=== PATIENT | male | born 1940 | race Caucasian/White ===

== ENCOUNTER → 2017-09-13 | Outpatient (CLI) | payer OTHER | END | disposition home or self-care (01) | LOC: RAH 09:02 | PROVIDERS: ATTEND Family Medicine | DX: I12.9 Hypertensive chronic kidney disease with stage 1 through stage 4 chronic kidney disease, or unspecified chronic kidney disease (principal); N18.4 Chronic kidney disease, stage 4 (severe); I31.3 Pericardial effusion (noninflammatory) | CPT/HCPCS: 93306 ==

== ENCOUNTER → 2018-08-31 | Outpatient (CLI) | payer OTHER | END | disposition home or self-care (01) | LOC: OIH 11:12 | PROVIDERS: ATTEND Family Medicine | DX: I50.9 Heart failure, unspecified (principal) | CPT/HCPCS: 71046 ==

== ENCOUNTER → 2018-09-26 | Outpatient (CLI) | payer OTHER | END | disposition home or self-care (01) | LOC: RAH 07:14 | PROVIDERS: ATTEND Family Medicine | DX: K76.0 Fatty (change of) liver, not elsewhere classified (principal); R63.4 Abnormal weight loss; E86.0 Dehydration | CPT/HCPCS: 76700 ==

== ENCOUNTER 2019-03-07 06:30 | Day surgery (SDC) | payer OTHER ==
[~2019-03-07] VITALS: Ht 177.8 cm; Wt 105.7 kg
[~2019-03-07 06:30] MED LIST: SODIUM CHLORIDE 0.9% 1000ML 1,000 ML IV ONE
[2019-03-07] MEDS ORDERED: PROPOFOL 10 MG/ML 20ML VIAL IV ONE ×2 (06:51)
[2019-03-07 07:35] VITALS: BP 137/74
[2019-03-07 09:45] VITALS: BP 129/52
[2019-03-07 09:50] VITALS: BP 136/74
[2019-03-07 09:55] VITALS: BP 136/66
[2019-03-07 10:00] VITALS: BP 135/67
== END 2019-03-07 10:15 | disposition home or self-care (01) ==
LOC: ENDO 06:30 → DAH 06:30 → ENDO 10:15
PROVIDERS: ATTEND Internal Medicine
DX: K62.1 Rectal polyp (principal); K63.5 Polyp of colon; K64.0 First degree hemorrhoids; K57.30 Diverticulosis of large intestine without perforation or abscess without bleeding; K22.8 Other specified diseases of esophagus; K44.9 Diaphragmatic hernia without obstruction or gangrene; F03.90 Unspecified dementia, unspecified severity, without behavioral disturbance, psychotic disturbance, mood disturbance, and anxiety; I10 Essential (primary) hypertension; K21.9 Gastro-esophageal reflux disease without esophagitis; E66.9 Obesity, unspecified; E11.9 Type 2 diabetes mellitus without complications; E78.5 Hyperlipidemia, unspecified; Z79.899 Other long term (current) drug therapy; Z79.84 Long term (current) use of oral hypoglycemic drugs; Z79.4 Long term (current) use of insulin; Z82.49 Family history of ischemic heart disease and other diseases of the circulatory system; Z83.3 Family history of diabetes mellitus
CPT/HCPCS: 43239; 45380; 45385; 82948 ×2; A4606; J2704 ×2; J7030

== ENCOUNTER 2020-08-27 10:36 | Inpatient (IN) | payer OTHER ==
[~2020-08-27] VITALS: Ht 177.8 cm; Wt 118.2 kg
[~2020-08-27 10:36] MED LIST changes: +EMPA10TA PO; +FURO20TA4 PO; +INSLAN SQ; +OMEP10CA5 PO; +SIMV40TA59 PO; -SODIUM CHLORIDE 0.9% 1000ML 1,000 ML IV ONE
[2020-08-27] MEDS ORDERED: FUROSEMIDE 40MG VIAL ONE (10:56)
[2020-08-27] MEDS ORDERED: 0.9%NACL 1000ML 1,000 ML IV ONE (10:58)
[2020-08-27] MEDS ORDERED: PROPOFOL 1000 MG/100 ML 100 ML IV ONE ×2 (11:08→21:39)
[2020-08-27 11:15] LABS: BASOPHILS % (AUTO) 0.2 % (0.0-5.0); HEMATOCRIT 38.9 % (42-54); LYMPHOCYTES % (AUTO) 9.2 % (21.0-51.0); MEAN CORPUSCULAR HEMOGLOBIN 22.9 pg (27.0-33.0); MEAN CORPUSCULAR HGB CONC 30.1 g/dL (32.0-36.0); MEAN CORPUSCULAR VOLUME 76.3 fL (79-99); MONOCYTES % (AUTO) 10.6 % (3.0-13.0); NEUTROPHILS % (AUTO) 79.5 % (40.0-77.0); PLATELET COUNT (AUTO) 251 K/uL (130-400); RED CELL DISTRIBUTION WIDTH 18.9 % (11.0-15.5); WHITE BLOOD COUNT (AUTO) 10.7 K/uL (4.8-10.8)
[2020-08-27 11:30] LABS: ABG BASE EXCESS -2.7 mmol/L (-2.0-3.0); ABG HCO3 22.8 mmol/L (21.0-28.0); ABG OXYGEN SATURATION 99.8 % (95.0-99.0); ABG PCO2 42 mmHg (35-48)
[2020-08-27 11:33] LABS: BILIRUBIN,URINE Negative (NEGATIVE); COLOR,URINE Yellow (YELLOW); GLUCOSE, URINE (UA) Negative (NEGATIVE); KETONES,URINE 40 mg/dL (NEGATIVE); LEUKOCYTE ESTERASE ,URINE Negative (NEGATIVE); NITRATE,URINE Negative (NEGATIVE); OCCULT BLOOD,URINE Large (NEGATIVE); PH,URINE 5.5 (5.0-8.0); PROTEIN,URINE POS 2+ mg/dL (NEGATIVE)
[2020-08-27] MEDS ORDERED: ACETAMINOPHEN 650 MG SUPPOSITORY RC ONE (11:33)
[2020-08-27 11:36] LABS: APPEARANCE,URINE SLIGHTLY CLOUDY (CLEAR)
[2020-08-27 11:37] LABS: ALANINE AMINOTRANSFERASE 54 U/L (12-78); ALBUMIN 3.2 g/dL (3.5-5.0); ASPARTATE AMINOTRANSFERASE 150 U/L (10-37); BILIRUBIN,TOTAL 1.1 mg/dL (0.2-1.0); CARBON DIOXIDE 24 mmol/L (21-32); CHLORIDE 100 mmol/L (101-111); GLOMERULAR FILTR. RATE CALC 34 mL/min (>60); GLUCOSE,RANDOM 162 mg/dL (70-105); MYOGLOBIN 892 ng/mL (10-92); POTASSIUM 3.6 mmol/L (3.5-5.1); SODIUM SERUM 134 mmol/L (136-145); TOTAL PROTEIN, SERUM 7.3 g/dL (6.0-8.3); TROPONIN I 0.08 ng/mL (0.00-0.06); UREA NITROGEN, BLOOD 17 mg/dL (7-18)
[2020-08-27 11:42] LABS: AMMONIA < 3 umol/L (11-32)
[2020-08-27 11:43] LABS: CREATINE KINASE, TOTAL 2921 U/L (21-232)
[2020-08-27 11:55] LABS: MUCUS,URINE Many LPF (None Seen); RBC,URINE 51-100 /HPF (0-1); WBC,URINE None Seen /HPF (0-1)
[2020-08-27 11:56] LABS: BACTERIA,URINE Moderate /HPF (None Seen)
[2020-08-27] MEDS ORDERED: ETOMIDATE 20MG VIAL IVP ONE (12:09)
[2020-08-27] MEDS ORDERED: ROCURONIUM BROMIDE 10MG/1ML 5ML VL IV ONE (12:09)
[2020-08-27 12:13] LABS: INR 1.15 (0.85-1.15); PROTHROMBIN TIME 12.4 SEC (9.6-11.6)
[2020-08-27 12:14] LABS: PARTIAL THROMBOPLASTIN TIME 27.1 SEC (26.3-35.5)
[2020-08-27] MEDS ORDERED: AZITHROMYCIN 500MG+NS 250ML 250 ML IV ONE (14:16)
[2020-08-27] MEDS ORDERED: LACTATED RINGERS 1000ML 1,000 ML IV SCH (14:30)
[2020-08-27] MEDS ORDERED: GLUCAGON 1MG KIT 1 MG ML IM PRN (14:30)
[2020-08-27] MEDS ORDERED: DEXTROSE 50%-WATER 50 ML DISP.SYRIN IV PRN (14:30)
[2020-08-27] MEDS ORDERED: ACETAMINOPHEN 650 MG SUPPOSITORY RC PRN (14:30)
[2020-08-27] MEDS ORDERED: ALBUTEROL INHALER 90MCG/INH IH PRN (14:30)
[2020-08-27] MEDS ORDERED: LACTULOSE 20 GM/30 ML UDCUP PO PRN (14:30)
[2020-08-27] MEDS ORDERED: ZOSYN 3.375GM +NS 50ML IV SCH (14:30)
[2020-08-27] MEDS ORDERED: LABETALOL 20MG SYG IV PRN (14:30)
[2020-08-27] MEDS ORDERED: CLONIDINE HCL 0.1 MG TABLET PO PRN (14:30)
[2020-08-27] MEDS ORDERED: ONDANSETRON 4MG INJ IVP PRN (14:30)
[2020-08-27] MEDS ORDERED: NOREPINEPHRIN 4MG/NS 250ML 250 ML IV PRN (14:30)
[2020-08-27] MEDS ORDERED: MORPHINE 2 MG SYG IVP PRN (14:30)
[2020-08-27] MEDS ORDERED: LEVOFLOXACIN 500 MG/D5W 100 ML 100 ML IV ONE (15:00)
[2020-08-27 15:36] LABS: CRP QUANTITATIVE 128.5 mg/L (0.00-9.0)
[2020-08-27] MEDS ORDERED: SOLU-MEDROL 125MG VIAL ONE (15:39)
[2020-08-27] MEDS ORDERED: ZOSYN 3.375GM+NS 50ML 50 ML IV ONE (15:40)
[2020-08-27] MEDS ORDERED: LACTATED RINGERS 1000ML 1,000 ML IV ONE (15:40)
[2020-08-27] MEDS ORDERED: ZOSYN 3.375GM+NS 50ML 50 ML IV SCH (16:00)
[2020-08-27 16:05] LABS: TROPONIN I 0.1 ng/mL (0.00-0.06)
[2020-08-27] MEDS ORDERED: LEVOFLOXACIN 500 MG/D5W 100 ML IV SCH (17:00)
[2020-08-27] MEDS ORDERED: LEVOFLOXACIN 500 MG/D5W 100 ML 100 ML ONE (17:36)
[2020-08-27 18:03] LABS: APPEARANCE,URINE Cloudy (CLEAR); BILIRUBIN,URINE Negative (NEGATIVE); COLOR,URINE Yellow (YELLOW); GLUCOSE, URINE (UA) Negative (NEGATIVE); KETONES,URINE Trace mg/dL (NEGATIVE); LEUKOCYTE ESTERASE ,URINE Moderate (NEGATIVE); NITRATE,URINE Negative (NEGATIVE); OCCULT BLOOD,URINE Moderate (NEGATIVE); PROTEIN,URINE Trace mg/dL (NEGATIVE)
[2020-08-27 18:11] LABS: AMPHET/METH SCREEN,URINE NEGATIVE (NEGATIVE); BARBITURATE SCREEN, URINE NEGATIVE (NEGATIVE); BENZODIAZEPINES SCREEN,URINE NEGATIVE (NEGATIVE); CANNABINOID SCREEN,URINE NEGATIVE (NEGATIVE); COCAINE SCREEN,URINE NEGATIVE (NEGATIVE); OPIATE SCREEN,URINE NEGATIVE (NEGATIVE); PHENCYCLIDINE SCREEN,URINE NEGATIVE (NEGATIVE)
[2020-08-27 18:25] LABS: BACTERIA,URINE Few /HPF (None Seen); SQUAMOUS EPITHELIAL CELL,UR Rare /HPF (0-2)
[2020-08-27 18:41] VITALS: BP 102/54
[2020-08-27 19:02] VITALS: BP 93/55
[2020-08-27] MEDS: PHARMACY COMMUNICATION MISC SCH ×3 (19:30→21:30)
[2020-08-27 20:02] VITALS: BP 108/59
[2020-08-27] MEDS: DEXTROSE 5%-LACTATED RINGERS 1,000 ML IV SCH (20:56)
[2020-08-27] MEDS: INSULIN HUMULIN R 100 UNIT/ML 3ML SQ SCH (21:00)
[2020-08-27 21:02] VITALS: BP 113/61
[2020-08-27] MEDS ORDERED: PROPOFOL 1000 MG/100 ML 100 ML IV PRN (22:00)
[2020-08-27 22:02] VITALS: BP 121/63
[2020-08-27] MEDS: PROPOFOL 1000 MG/100 ML 100 ML IV SCH (22:04)
[2020-08-27] MEDS: SOLU-MEDROL 125MG VIAL IVP SCH (22:05)
[2020-08-27 23:02] VITALS: BP 114/57
[2020-08-27 23:15] LABS: TROPONIN I 0.06 ng/mL (0.00-0.06)
[2020-08-28] VITALS (25 sets, daily range): BP systolic 116–158; BP diastolic 58–87
[2020-08-28] MEDS: DEXTROSE 5%-LACTATED RINGERS 1,000 ML IV SCH ×3 (01:21→22:01)
[2020-08-28 03:21] LABS: INR 1.28 (0.85-1.15); PROTHROMBIN TIME 13.6 SEC (9.6-11.6)
[2020-08-28 03:27] LABS: TROPONIN I 0.05 ng/mL (0.00-0.06)
[2020-08-28 04:32] LABS: ABG BASE EXCESS -2.2 mmol/L (-2.0-3.0); ABG HCO3 22.1 mmol/L (21.0-28.0); ABG OXYGEN SATURATION 98.8 % (95.0-99.0); ABG PCO2 37 mmHg (35-48)
[2020-08-28] MEDS: ZOSYN 3.375GM+NS 50ML 50 ML IV SCH ×2 (04:46→16:55)
[2020-08-28] MEDS: SOLU-MEDROL 125MG VIAL IVP SCH ×3 (05:42→22:01)
[2020-08-28 07:34] LABS: HEMATOCRIT 35.1 % (42-54); LYMPHOCYTES % (AUTO) 9.1 % (21.0-51.0); MEAN CORPUSCULAR HEMOGLOBIN 23.4 pg (27.0-33.0); MEAN CORPUSCULAR HGB CONC 31.1 g/dL (32.0-36.0); MEAN CORPUSCULAR VOLUME 75.5 fL (79-99); MONOCYTES % (AUTO) 2.6 % (3.0-13.0); NEUTROPHILS % (AUTO) 88.2 % (40.0-77.0); PLATELET COUNT (AUTO) 206 K/uL (130-400); RED BLOOD CELL COUNT(AUTO) 4.65 MIL/uL (4.50-6.20); WHITE BLOOD COUNT (AUTO) 7.2 K/uL (4.8-10.8)
[2020-08-28 07:38] LABS: CREATININE 1.2 mg/dL (0.5-1.5)
[2020-08-28] MEDS: ASPIRIN 81MG CHEW TAB PO SCH (08:11)
[2020-08-28] MEDS: ENOXAPARIN SODIUM 40 MG/0.4 ML SYRINGE SQ SCH (08:12)
[2020-08-28] MEDS: INSULIN HUMULIN R 100 UNIT/ML 3ML SQ SCH ×4 (08:30→22:03)
[2020-08-28] MEDS: PROPOFOL 1000 MG/100 ML 100 ML IV SCH ×3 (09:58→22:12)
[2020-08-28] MEDS ORDERED: COMPOUND IV MISC 1 EACH IVSOLN MISC PRN (12:30)
[2020-08-28] MEDS ORDERED: FOSPHENYTOIN SODIUM 1,500 MG in 0.9%NACL 100ML 100 ML IJ SCH (12:30)
[2020-08-28 13:22] LABS: HEMOGLOBIN A1C 7.9 % (4.0-6.0)
[2020-08-28] MEDS: LEVOFLOXACIN 250 MG/D5W 50ML 50 ML IVPB SCH (15:27)
[2020-08-28 16:04] LABS: MYOGLOBIN 421 ng/mL (10-92)
[2020-08-28 16:07] LABS: CREATINE KINASE, TOTAL 958 U/L (21-232)
[2020-08-28] MEDS: FOSPHENYTOIN SODIUM 200 MG in 0.9%NACL 50ML 50 ML IJ SCH (22:01)
[2020-08-28] MEDS: BALSAM PERU/CASTOR OIL 60 GM TUBE TP SCH (22:01)
[2020-08-29] VITALS (25 sets, daily range): BP systolic 104–163; BP diastolic 56–87
[2020-08-29] MEDS: INSULIN HUMULIN R 100 UNIT/ML 3ML SQ SCH ×4 (00:15→17:44)
[2020-08-29] MEDS: PROPOFOL 1000 MG/100 ML 100 ML IV SCH (01:22)
[2020-08-29] MEDS: ZOSYN 3.375GM+NS 50ML 50 ML IV SCH ×2 (04:59→17:31)
[2020-08-29] MEDS: DEXTROSE 5%-LACTATED RINGERS 1,000 ML IV SCH (05:18)
[2020-08-29] MEDS: FOSPHENYTOIN SODIUM 200 MG in 0.9%NACL 50ML 50 ML IJ SCH ×3 (05:18→21:42)
[2020-08-29] MEDS: SOLU-MEDROL 125MG VIAL IVP SCH ×3 (05:18→21:58)
[2020-08-29] MEDS: ENOXAPARIN SODIUM 40 MG/0.4 ML SYRINGE SQ SCH (08:26)
[2020-08-29] MEDS ORDERED: INSULIN GLARGINE 100 UNITS/ML 10 ML VIAL SQ SCH ×3 (08:30→21:00)
[2020-08-29 08:39] LABS: ABG BASE EXCESS 3.8 mmol/L (-2.0-3.0); ABG HCO3 27.6 mmol/L (21.0-28.0); ABG OXYGEN SATURATION 98.6 % (95.0-99.0); ABG PCO2 39 mmHg (35-48)
[2020-08-29] MEDS: ASPIRIN 81MG CHEW TAB PO SCH (09:03)
[2020-08-29] MEDS: BALSAM PERU/CASTOR OIL 60 GM TUBE TP SCH ×2 (09:03→21:42)
[2020-08-29 09:18] LABS: BASOPHILS % (AUTO) 0.1 % (0.0-5.0); HEMATOCRIT 34.7 % (42-54); LYMPHOCYTES % (AUTO) 7.2 % (21.0-51.0); MEAN CORPUSCULAR HEMOGLOBIN 23.2 pg (27.0-33.0); MEAN CORPUSCULAR HGB CONC 31.7 g/dL (32.0-36.0); MEAN CORPUSCULAR VOLUME 73.2 fL (79-99); MONOCYTES % (AUTO) 5.1 % (3.0-13.0); NEUTROPHILS % (AUTO) 87.3 % (40.0-77.0); PLATELET COUNT (AUTO) 228 K/uL (130-400); RED BLOOD CELL COUNT(AUTO) 4.74 MIL/uL (4.50-6.20); RED CELL DISTRIBUTION WIDTH 18.8 % (11.0-15.5); WHITE BLOOD COUNT (AUTO) 7.7 K/uL (4.8-10.8)
[2020-08-29 09:28] LABS: POTASSIUM 3.7 mmol/L (3.5-5.1)
[2020-08-29 11:13] LABS: ABG BASE EXCESS 1.8 mmol/L (-2.0-3.0); ABG HCO3 25.4 mmol/L (21.0-28.0); ABG OXYGEN SATURATION 98.7 % (95.0-99.0); ABG PCO2 36 mmHg (35-48)
[2020-08-29] MEDS: IPRATROPIUM/ALBUTEROL SULFATE 3 ML SOLUTION IH SCH ×2 (12:00→18:00)
[2020-08-29] MEDS: LEVOFLOXACIN 250 MG/D5W 50ML 50 ML IVPB SCH (15:32)
[2020-08-29] MEDS: LACTATED RINGERS 1000ML 1,000 ML IV SCH (17:31)
[2020-08-29] MEDS: INSULIN GLARGINE 100 UNITS/ML 10 ML VIAL SQ SCH (21:52)
[2020-08-30] VITALS (32 sets, daily range): BP systolic 100–170; BP diastolic 47–91
[2020-08-30] MEDS ORDERED: VECURONIUM 10MG/10ML IV ONE (01:04)
[2020-08-30] MEDS: INSULIN HUMULIN R 100 UNIT/ML 3ML SQ SCH ×4 (01:24→18:40)
[2020-08-30] MEDS: PROPOFOL 1000 MG/100 ML 100 ML IV SCH ×3 (02:40→10:46)
[2020-08-30 04:35] LABS: HEMATOCRIT 32.5 % (42-54); MEAN CORPUSCULAR HEMOGLOBIN 23.1 pg (27.0-33.0); MEAN CORPUSCULAR HGB CONC 31.1 g/dL (32.0-36.0); MEAN CORPUSCULAR VOLUME 74.4 fL (79-99); RED BLOOD CELL COUNT(AUTO) 4.37 MIL/uL (4.50-6.20); RED CELL DISTRIBUTION WIDTH 18.7 % (11.0-15.5); WHITE BLOOD COUNT (AUTO) 8.5 K/uL (4.8-10.8)
[2020-08-30 04:47] LABS: ALBUMIN 2.2 g/dL (3.5-5.0); BILIRUBIN,TOTAL 0.4 mg/dL (0.2-1.0); TOTAL PROTEIN, SERUM 5.9 g/dL (6.0-8.3)
[2020-08-30] MEDS: LACTATED RINGERS 1000ML 1,000 ML IV SCH ×2 (04:56→16:05)
[2020-08-30] MEDS: ZOSYN 3.375GM+NS 50ML 50 ML IV SCH ×2 (04:56→16:05)
[2020-08-30] MEDS: FOSPHENYTOIN SODIUM 200 MG in 0.9%NACL 50ML 50 ML IJ SCH ×3 (06:09→23:08)
[2020-08-30] MEDS: SOLU-MEDROL 125MG VIAL IVP SCH ×3 (06:10→22:35)
[2020-08-30] MEDS: ASPIRIN 81MG CHEW TAB PO SCH (09:08)
[2020-08-30] MEDS: ENOXAPARIN SODIUM 40 MG/0.4 ML SYRINGE SQ SCH (09:15)
[2020-08-30] MEDS: BALSAM PERU/CASTOR OIL 60 GM TUBE TP SCH ×2 (09:15→21:00)
[2020-08-30] MEDS: INSULIN GLARGINE 100 UNITS/ML 10 ML VIAL SQ SCH ×2 (09:16→22:37)
[2020-08-30] MEDS: IPRATROPIUM/ALBUTEROL SULFATE 3 ML SOLUTION IH SCH (12:00)
[2020-08-30] MEDS: LEVOFLOXACIN 250 MG/D5W 50ML 50 ML IVPB SCH (15:13)
[2020-08-30] MEDS ORDERED: ROCURONIUM BROMIDE 10MG/1ML 5ML VL IV SCH (16:30)
[2020-08-30] MEDS ORDERED: PHARMACY COMMUNICATION MISC STA (16:38)
[2020-08-30] MEDS ORDERED: ROCURONIUM BROMIDE 10MG/1ML 5ML VL IV ONE (17:00)
[2020-08-31] VITALS (43 sets, daily range): BP systolic 113–178; BP diastolic 61–97
[2020-08-31] MEDS: INSULIN HUMULIN R 100 UNIT/ML 3ML SQ SCH ×4 (00:35→17:07)
[2020-08-31] MEDS: ZOSYN 3.375GM+NS 50ML 50 ML IV SCH ×2 (04:14→17:08)
[2020-08-31] MEDS: FOSPHENYTOIN SODIUM 200 MG in 0.9%NACL 50ML 50 ML IJ SCH ×3 (05:59→21:05)
[2020-08-31] MEDS: LACTATED RINGERS 1000ML 1,000 ML IV SCH ×2 (06:00→21:06)
[2020-08-31] MEDS: SOLU-MEDROL 125MG VIAL IVP SCH ×3 (06:54→21:59)
[2020-08-31] MEDS: ASPIRIN 81MG CHEW TAB PO SCH (08:13)
[2020-08-31] MEDS: ENOXAPARIN SODIUM 40 MG/0.4 ML SYRINGE SQ SCH (08:14)
[2020-08-31] MEDS: INSULIN GLARGINE 100 UNITS/ML 10 ML VIAL SQ SCH ×2 (08:15→21:08)
[2020-08-31] MEDS: BALSAM PERU/CASTOR OIL 60 GM TUBE TP SCH ×2 (08:17→21:05)
[2020-08-31 10:32] LABS: CREATININE 0.9 mg/dL (0.5-1.5); POTASSIUM 4.3 mmol/L (3.5-5.1)
[2020-08-31] MEDS: METOPROLOL TARTRATE 25 MG TAB PO SCH ×2 (10:53→21:05)
[2020-08-31] MEDS: POLYETHYLENE GLYCOL 3350 17 GM POWD.PACK PO SCH (10:53)
[2020-08-31 11:07] LABS: ABG HCO3 25.4 mmol/L (21.0-28.0); ABG OXYGEN SATURATION 98.1 % (95.0-99.0); ABG PCO2 40 mmHg (35-48)
[2020-08-31] MEDS: LEVOFLOXACIN 250 MG/D5W 50ML 50 ML IVPB SCH (14:23)
[2020-09-01] VITALS (35 sets, daily range): BP systolic 132–171; BP diastolic 62–107
[2020-09-01] MEDS: ZOSYN 3.375GM+NS 50ML 50 ML IV SCH ×2 (03:02→16:37)
[2020-09-01] MEDS: SOLU-MEDROL 125MG VIAL IVP SCH ×3 (06:38→21:56)
[2020-09-01] MEDS: INSULIN HUMULIN R 100 UNIT/ML 3ML SQ SCH ×4 (06:43→18:44)
[2020-09-01] MEDS: INSULIN GLARGINE 100 UNITS/ML 10 ML VIAL SQ SCH ×2 (06:44→21:55)
[2020-09-01] MEDS: FOSPHENYTOIN SODIUM 200 MG in 0.9%NACL 50ML 50 ML IJ SCH ×2 (06:45→13:58)
[2020-09-01 09:07] LABS: HEMATOCRIT 41.4 % (42-54); MEAN CORPUSCULAR HEMOGLOBIN 23.1 pg (27.0-33.0); MEAN CORPUSCULAR HGB CONC 30.7 g/dL (32.0-36.0); MEAN CORPUSCULAR VOLUME 75.4 fL (79-99); RED BLOOD CELL COUNT(AUTO) 5.49 MIL/uL (4.50-6.20); RED CELL DISTRIBUTION WIDTH 19.8 % (11.0-15.5)
[2020-09-01 09:25] LABS: ALBUMIN 2.5 g/dL (3.5-5.0); BILIRUBIN,TOTAL 0.6 mg/dL (0.2-1.0); CREATININE 0.9 mg/dL (0.5-1.5); POTASSIUM 4.7 mmol/L (3.5-5.1); TOTAL PROTEIN, SERUM 6.6 g/dL (6.0-8.3)
[2020-09-01] MEDS: IPRATROPIUM/ALBUTEROL SULFATE 3 ML SOLUTION IH SCH ×3 (09:40→18:00)
[2020-09-01] MEDS: FUROSEMIDE 20MG VIAL IV SCH (09:41)
[2020-09-01] MEDS: METOPROLOL TARTRATE 25 MG TAB PO SCH ×3 (09:41→21:00)
[2020-09-01] MEDS: ASPIRIN 81MG CHEW TAB PO SCH (09:41)
[2020-09-01] MEDS: ENOXAPARIN SODIUM 40 MG/0.4 ML SYRINGE SQ SCH (09:42)
[2020-09-01] MEDS: BALSAM PERU/CASTOR OIL 60 GM TUBE TP SCH ×2 (09:42→21:53)
[2020-09-01] MEDS: POLYETHYLENE GLYCOL 3350 17 GM POWD.PACK PO SCH (09:42)
[2020-09-01] MEDS: LACTATED RINGERS 1000ML 1,000 ML IV SCH ×2 (09:53→21:56)
[2020-09-01] MEDS ORDERED: COMPOUND IV REFRIGERATED 1 EACH IVSOLN MISC PRN (12:30)
[2020-09-01] MEDS ORDERED: COMPOUND IV MISC 1 EACH IVSOLN MISC PRN (14:45)
[2020-09-01] MEDS: LEVOFLOXACIN 250 MG/D5W 50ML 50 ML IVPB SCH (15:28)
[2020-09-01] MEDS ORDERED: LEVETIRACETAM 1,000 MG in 0.9%NACL 100ML 100 ML IV ONE (16:00)
[2020-09-01] MEDS: FOSPHENYTOIN SODIUM 100 MG/2 ML VIAL IV SCH (21:55)
[2020-09-02] VITALS (81 sets, daily range): BP systolic 100–163; BP diastolic 45–109
[2020-09-02] MEDS: ZOSYN 3.375GM+NS 50ML 50 ML IV SCH ×2 (03:02→17:05)
[2020-09-02 04:31] LABS: ABG HCO3 28.8 mmol/L (21.0-28.0); ABG OXYGEN SATURATION 95.9 % (95.0-99.0); ABG PCO2 53 mmHg (35-48)
[2020-09-02 05:19] LABS: MEAN CORPUSCULAR HEMOGLOBIN 23.1 pg (27.0-33.0); MEAN CORPUSCULAR HGB CONC 30.5 g/dL (32.0-36.0); MEAN CORPUSCULAR VOLUME 75.9 fL (79-99); RED BLOOD CELL COUNT(AUTO) 5.53 MIL/uL (4.50-6.20); RED CELL DISTRIBUTION WIDTH 19.7 % (11.0-15.5); WHITE BLOOD COUNT (AUTO) 14.5 K/uL (4.8-10.8)
[2020-09-02 05:45] LABS: CREATININE 0.9 mg/dL (0.5-1.5); POTASSIUM 4.6 mmol/L (3.5-5.1)
[2020-09-02] MEDS: INSULIN GLARGINE 100 UNITS/ML 10 ML VIAL SQ SCH ×2 (06:46→21:00)
[2020-09-02] MEDS: INSULIN HUMULIN R 100 UNIT/ML 3ML SQ SCH ×4 (06:47→19:00)
[2020-09-02] MEDS: LEVETIRACETAM 500 MG in 0.9%NACL 100ML 100 ML IV SCH ×2 (06:48→17:05)
[2020-09-02] MEDS: SOLU-MEDROL 125MG VIAL IVP SCH ×2 (06:48→14:50)
[2020-09-02] MEDS: FOSPHENYTOIN SODIUM 100 MG/2 ML VIAL IV SCH ×3 (06:48→22:00)
[2020-09-02] MEDS: FUROSEMIDE 20MG VIAL IV SCH (08:45)
[2020-09-02] MEDS: ENOXAPARIN SODIUM 40 MG/0.4 ML SYRINGE SQ SCH (08:45)
[2020-09-02] MEDS: POLYETHYLENE GLYCOL 3350 17 GM POWD.PACK PO SCH (08:46)
[2020-09-02] MEDS: METOPROLOL TARTRATE 25 MG TAB PO SCH ×2 (08:46→21:00)
[2020-09-02] MEDS: BALSAM PERU/CASTOR OIL 60 GM TUBE TP SCH ×2 (08:47→21:00)
[2020-09-02] MEDS: ASPIRIN 81MG CHEW TAB PO SCH (08:47)
[2020-09-02] MEDS: LACTATED RINGERS 1000ML 1,000 ML IV SCH (11:05)
[2020-09-02] MEDS: LEVOFLOXACIN 250 MG/D5W 50ML 50 ML IVPB SCH (14:49)
[2020-09-02] MEDS: LACTATED RINGERS 1000ML IV SCH (17:00)
[2020-09-03] VITALS (41 sets, daily range): BP systolic 100–148; BP diastolic 55–100
[2020-09-03] MEDS: LACTATED RINGERS 1000ML 1,000 ML IV SCH ×2 (00:02→15:19)
[2020-09-03] MEDS: INSULIN HUMULIN R 100 UNIT/ML 3ML SQ SCH ×4 (00:02→18:37)
[2020-09-03 04:48] LABS: BASOPHILS % (AUTO) 0.2 % (0.0-5.0); EOSINOPHILS % (AUTO) 0.7 % (0.0-8.0); HEMATOCRIT 36.9 % (42-54); LYMPHOCYTES % (AUTO) 10.9 % (21.0-51.0); MEAN CORPUSCULAR HEMOGLOBIN 23.3 pg (27.0-33.0); MEAN CORPUSCULAR HGB CONC 31.2 g/dL (32.0-36.0); MEAN CORPUSCULAR VOLUME 74.7 fL (79-99); NEUTROPHILS % (AUTO) 80.4 % (40.0-77.0); PLATELET COUNT (AUTO) 196 K/uL (130-400); RED BLOOD CELL COUNT(AUTO) 4.94 MIL/uL (4.50-6.20); RED CELL DISTRIBUTION WIDTH 19.5 % (11.0-15.5); WHITE BLOOD COUNT (AUTO) 11.1 K/uL (4.8-10.8)
[2020-09-03 05:09] LABS: CREATININE 0.9 mg/dL (0.5-1.5); POTASSIUM 4.4 mmol/L (3.5-5.1)
[2020-09-03] MEDS: ZOSYN 3.375GM+NS 50ML 50 ML IV SCH ×2 (05:09→15:19)
[2020-09-03] MEDS: LEVETIRACETAM 500 MG in 0.9%NACL 100ML 100 ML IV SCH ×2 (06:39→18:38)
[2020-09-03] MEDS: FOSPHENYTOIN SODIUM 100 MG/2 ML VIAL IV SCH ×3 (06:39→21:29)
[2020-09-03] MEDS: SOLU-MEDROL 125MG VIAL IVP SCH ×4 (06:40→21:30)
[2020-09-03] MEDS: INSULIN GLARGINE 100 UNITS/ML 10 ML VIAL SQ SCH ×2 (06:43→21:31)
[2020-09-03] MEDS: METOPROLOL TARTRATE 25 MG TAB PO SCH ×2 (09:15→21:29)
[2020-09-03] MEDS: POLYETHYLENE GLYCOL 3350 17 GM POWD.PACK PO SCH (09:15)
[2020-09-03] MEDS: LACTULOSE 20 GM/30 ML UDCUP NG SCH ×2 (09:15→21:29)
[2020-09-03] MEDS: ASPIRIN 81MG CHEW TAB PO SCH (09:15)
[2020-09-03] MEDS: ENOXAPARIN SODIUM 40 MG/0.4 ML SYRINGE SQ SCH (09:16)
[2020-09-03] MEDS: FAMOTIDINE 20MG VIAL IV SCH ×2 (09:16→21:29)
[2020-09-03] MEDS: FUROSEMIDE 20MG VIAL IV SCH (09:16)
[2020-09-03] MEDS: BALSAM PERU/CASTOR OIL 60 GM TUBE TP SCH ×2 (09:18→21:30)
[2020-09-03] MEDS: IPRATROPIUM/ALBUTEROL SULFATE 3 ML SOLUTION IH SCH ×2 (12:00→18:00)
[2020-09-03] MEDS: LEVOFLOXACIN 250 MG/D5W 50ML 50 ML IVPB SCH (15:18)
[2020-09-03] MEDS: LACTATED RINGERS 1000ML IV SCH (15:30)
[2020-09-04] VITALS (32 sets, daily range): BP systolic 112–155; BP diastolic 52–94
[2020-09-04] MEDS: INSULIN HUMULIN R 100 UNIT/ML 3ML SQ SCH ×4 (00:53→18:51)
[2020-09-04] MEDS: LACTATED RINGERS 1000ML 1,000 ML IV SCH ×2 (03:37→18:52)
[2020-09-04 04:48] LABS: BASOPHILS % (AUTO) 0.2 % (0.0-5.0); HEMATOCRIT 35.6 % (42-54); LYMPHOCYTES % (AUTO) 15.4 % (21.0-51.0); MEAN CORPUSCULAR HEMOGLOBIN 23.5 pg (27.0-33.0); MEAN CORPUSCULAR HGB CONC 30.9 g/dL (32.0-36.0); MEAN CORPUSCULAR VOLUME 75.9 fL (79-99); MONOCYTES % (AUTO) 8.5 % (3.0-13.0); NEUTROPHILS % (AUTO) 73.6 % (40.0-77.0); PLATELET COUNT (AUTO) 211 K/uL (130-400); RED BLOOD CELL COUNT(AUTO) 4.69 MIL/uL (4.50-6.20); RED CELL DISTRIBUTION WIDTH 19.7 % (11.0-15.5); WHITE BLOOD COUNT (AUTO) 9.3 K/uL (4.8-10.8)
[2020-09-04] MEDS: ZOSYN 3.375GM+NS 50ML 50 ML IV SCH ×2 (04:53→15:07)
[2020-09-04 05:10] LABS: POTASSIUM 4.4 mmol/L (3.5-5.1)
[2020-09-04] MEDS: SOLU-MEDROL 125MG VIAL IVP SCH ×3 (06:37→20:45)
[2020-09-04] MEDS: FOSPHENYTOIN SODIUM 100 MG/2 ML VIAL IV SCH ×3 (06:37→21:24)
[2020-09-04] MEDS: LEVETIRACETAM 500 MG in 0.9%NACL 100ML 100 ML IV SCH (06:38)
[2020-09-04] MEDS: INSULIN GLARGINE 100 UNITS/ML 10 ML VIAL SQ SCH ×2 (06:39→20:46)
[2020-09-04] MEDS: LACTULOSE 20 GM/30 ML UDCUP NG SCH ×2 (09:02→20:45)
[2020-09-04] MEDS: METOPROLOL TARTRATE 25 MG TAB PO SCH ×2 (09:02→20:45)
[2020-09-04] MEDS: POLYETHYLENE GLYCOL 3350 17 GM POWD.PACK PO SCH (09:02)
[2020-09-04] MEDS: ENOXAPARIN SODIUM 40 MG/0.4 ML SYRINGE SQ SCH (09:03)
[2020-09-04] MEDS: ASPIRIN 81MG CHEW TAB PO SCH (09:03)
[2020-09-04] MEDS: FUROSEMIDE 20MG VIAL IV SCH (09:03)
[2020-09-04] MEDS: FAMOTIDINE 20MG VIAL IV SCH ×2 (09:03→20:45)
[2020-09-04] MEDS: BALSAM PERU/CASTOR OIL 60 GM TUBE TP SCH ×2 (09:03→20:47)
[2020-09-04] MEDS: IPRATROPIUM/ALBUTEROL SULFATE 3 ML SOLUTION IH SCH ×2 (12:00→18:00)
[2020-09-04] MEDS ORDERED: PHARMACY COMMUNICATION MISC SCH (14:00)
[2020-09-04] MEDS: LEVOFLOXACIN 250 MG/D5W 50ML 50 ML IVPB SCH (15:07)
[2020-09-04] MEDS: LACTATED RINGERS 1000ML IV SCH (15:55)
[2020-09-04] MEDS: LEVETIRACETAM 1,000 MG in 0.9%NACL 100ML 100 ML IV SCH (18:00)
[2020-09-05] VITALS (26 sets, daily range): BP systolic 103–136; BP diastolic 50–82
[2020-09-05] MEDS: INSULIN HUMULIN R 100 UNIT/ML 3ML SQ SCH ×5 (01:27→23:47)
[2020-09-05] MEDS: ZOSYN 3.375GM+NS 50ML 50 ML IV SCH ×2 (04:39→16:14)
[2020-09-05] MEDS: IPRATROPIUM/ALBUTEROL SULFATE 3 ML SOLUTION IH SCH ×2 (04:39)
[2020-09-05] MEDS: LACTATED RINGERS 1000ML 1,000 ML IV SCH ×2 (05:52→19:07)
[2020-09-05] MEDS: FOSPHENYTOIN SODIUM 100 MG/2 ML VIAL IV SCH ×3 (05:55→21:22)
[2020-09-05] MEDS: LEVETIRACETAM 1,000 MG in 0.9%NACL 100ML 100 ML IV SCH ×2 (05:56→18:00)
[2020-09-05] MEDS: SOLU-MEDROL 125MG VIAL IVP SCH ×3 (05:59→21:31)
[2020-09-05] MEDS: INSULIN GLARGINE 100 UNITS/ML 10 ML VIAL SQ SCH ×2 (06:28→21:17)
[2020-09-05] MEDS: METOPROLOL TARTRATE 25 MG TAB PO SCH ×2 (09:09→22:28)
[2020-09-05] MEDS: ASPIRIN 81MG CHEW TAB PO SCH (09:09)
[2020-09-05] MEDS: LACTULOSE 20 GM/30 ML UDCUP NG SCH ×2 (09:09→20:32)
[2020-09-05] MEDS: FAMOTIDINE 20MG VIAL IV SCH ×2 (09:09→21:15)
[2020-09-05] MEDS: POLYETHYLENE GLYCOL 3350 17 GM POWD.PACK PO SCH (09:09)
[2020-09-05] MEDS: BALSAM PERU/CASTOR OIL 60 GM TUBE TP SCH ×2 (09:10→21:15)
[2020-09-05] MEDS: ENOXAPARIN SODIUM 40 MG/0.4 ML SYRINGE SQ SCH (09:10)
[2020-09-05] MEDS: FUROSEMIDE 20MG VIAL IV SCH (09:10)
[2020-09-05 10:23] LABS: BASOPHILS % (AUTO) 0.1 % (0.0-5.0); EOSINOPHILS % (AUTO) 1.2 % (0.0-8.0); LYMPHOCYTES % (AUTO) 16.2 % (21.0-51.0); MEAN CORPUSCULAR HEMOGLOBIN 23.3 pg (27.0-33.0); MEAN CORPUSCULAR VOLUME 77.8 fL (79-99); NEUTROPHILS % (AUTO) 73.4 % (40.0-77.0); PLATELET COUNT (AUTO) 218 K/uL (130-400); RED BLOOD CELL COUNT(AUTO) 4.37 MIL/uL (4.50-6.20)
[2020-09-05 10:44] LABS: CREATININE 0.8 mg/dL (0.5-1.5); POTASSIUM 4.4 mmol/L (3.5-5.1)
[2020-09-05] MEDS: LACTATED RINGERS 1000ML IV SCH (16:00)
[2020-09-05] MEDS: LEVOFLOXACIN 250 MG/D5W 50ML 50 ML IVPB SCH (16:13)
[2020-09-05] MEDS ORDERED: PHARMACY COMMUNICATION MISC SCH (16:15)
[2020-09-05] MEDS: LEVETIRACETAM 1,500 MG in 0.9%NACL 100ML 100 ML IV SCH (18:58)
[2020-09-06] VITALS (23 sets, daily range): BP systolic 105–129; BP diastolic 58–83
[2020-09-06 03:42] LABS: BASOPHILS % (AUTO) 0.2 % (0.0-5.0); EOSINOPHILS % (AUTO) 0.5 % (0.0-8.0); HEMATOCRIT 32.5 % (42-54); LYMPHOCYTES % (AUTO) 13.6 % (21.0-51.0); MEAN CORPUSCULAR HGB CONC 31.7 g/dL (32.0-36.0); MEAN CORPUSCULAR VOLUME 75.8 fL (79-99); MONOCYTES % (AUTO) 7.2 % (3.0-13.0); NEUTROPHILS % (AUTO) 77.3 % (40.0-77.0); PLATELET COUNT (AUTO) 214 K/uL (130-400); RED BLOOD CELL COUNT(AUTO) 4.29 MIL/uL (4.50-6.20); WHITE BLOOD COUNT (AUTO) 8.3 K/uL (4.8-10.8)
[2020-09-06] MEDS: ZOSYN 3.375GM+NS 50ML 50 ML IV SCH ×2 (03:55→16:07)
[2020-09-06 03:57] LABS: CREATININE 0.8 mg/dL (0.5-1.5); POTASSIUM 4.7 mmol/L (3.5-5.1)
[2020-09-06] MEDS: LEVETIRACETAM 1,500 MG in 0.9%NACL 100ML 100 ML IV SCH ×2 (03:58→16:07)
[2020-09-06] MEDS: LEVETIRACETAM 1,000 MG in 0.9%NACL 100ML 100 ML IV SCH ×2 (03:59→16:07)
[2020-09-06] MEDS: LACTATED RINGERS 1000ML 1,000 ML IV SCH (04:20)
[2020-09-06] MEDS: FOSPHENYTOIN SODIUM 100 MG/2 ML VIAL IV SCH ×3 (05:38→22:00)
[2020-09-06] MEDS: SOLU-MEDROL 125MG VIAL IVP SCH ×2 (05:38→13:52)
[2020-09-06] MEDS: INSULIN HUMULIN R 100 UNIT/ML 3ML SQ SCH ×3 (06:09→18:36)
[2020-09-06] MEDS: FAMOTIDINE 20MG VIAL IV SCH ×2 (07:53→20:36)
[2020-09-06] MEDS: INSULIN GLARGINE 100 UNITS/ML 10 ML VIAL SQ SCH ×2 (07:53→20:39)
[2020-09-06] MEDS: FUROSEMIDE 20MG VIAL IV SCH (07:53)
[2020-09-06] MEDS: POLYETHYLENE GLYCOL 3350 17 GM POWD.PACK PO SCH (07:54)
[2020-09-06] MEDS: ASPIRIN 81MG CHEW TAB PO SCH (07:54)
[2020-09-06] MEDS: ENOXAPARIN SODIUM 40 MG/0.4 ML SYRINGE SQ SCH (07:55)
[2020-09-06] MEDS: LACTULOSE 20 GM/30 ML UDCUP NG SCH ×2 (07:57→20:36)
[2020-09-06] MEDS: METOPROLOL TARTRATE 25 MG TAB PO SCH ×2 (07:57→20:37)
[2020-09-06] MEDS: BALSAM PERU/CASTOR OIL 60 GM TUBE TP SCH ×2 (09:00→20:40)
[2020-09-06] MEDS: LEVOFLOXACIN 250 MG/D5W 50ML 50 ML IVPB SCH (14:19)
[2020-09-06] MEDS: LACTATED RINGERS 1000ML IV SCH (15:40)
[2020-09-07] VITALS (23 sets, daily range): BP systolic 111–145; BP diastolic 65–92
[2020-09-07] MEDS: SOLU-MEDROL 125MG VIAL IVP SCH ×4 (00:52→21:13)
[2020-09-07] MEDS: INSULIN HUMULIN R 100 UNIT/ML 3ML SQ SCH ×4 (01:51→17:24)
[2020-09-07] MEDS: ZOSYN 3.375GM+NS 50ML 50 ML IV SCH (03:38)
[2020-09-07 03:43] LABS: ABG BASE EXCESS 3.8 mmol/L (-2.0-3.0); ABG HCO3 28.1 mmol/L (21.0-28.0); ABG OXYGEN SATURATION 96.8 % (95.0-99.0); ABG PCO2 41 mmHg (35-48)
[2020-09-07 04:17] LABS: BASOPHILS % (AUTO) 0.3 % (0.0-5.0); EOSINOPHILS % (AUTO) 0.9 % (0.0-8.0); HEMATOCRIT 33.9 % (42-54); MEAN CORPUSCULAR HEMOGLOBIN 23.8 pg (27.0-33.0); MEAN CORPUSCULAR HGB CONC 31.3 g/dL (32.0-36.0); MONOCYTES % (AUTO) 4.7 % (3.0-13.0); NEUTROPHILS % (AUTO) 86.9 % (40.0-77.0); PLATELET COUNT (AUTO) 266 K/uL (130-400); RED BLOOD CELL COUNT(AUTO) 4.46 MIL/uL (4.50-6.20); RED CELL DISTRIBUTION WIDTH 20.1 % (11.0-15.5)
[2020-09-07] MEDS: LEVETIRACETAM 1,500 MG in 0.9%NACL 100ML 100 ML IV SCH ×2 (04:30→16:10)
[2020-09-07 04:35] LABS: CREATININE 0.9 mg/dL (0.5-1.5); MAGNESIUM 1.8 mg/dL (1.80-2.40); PHOSPHORUS 2.9 mg/dL (2.5-4.9); POTASSIUM 4.6 mmol/L (3.5-5.1)
[2020-09-07] MEDS: FOSPHENYTOIN SODIUM 100 MG/2 ML VIAL IV SCH ×3 (05:17→21:13)
[2020-09-07] MEDS: METOPROLOL TARTRATE 25 MG TAB PO SCH ×2 (08:19→21:13)
[2020-09-07] MEDS: ASPIRIN 81MG CHEW TAB PO SCH (08:19)
[2020-09-07] MEDS: FAMOTIDINE 20MG VIAL IV SCH ×2 (08:19→21:13)
[2020-09-07] MEDS: POLYETHYLENE GLYCOL 3350 17 GM POWD.PACK PO SCH (08:20)
[2020-09-07] MEDS: LACTULOSE 20 GM/30 ML UDCUP NG SCH ×2 (08:20→21:13)
[2020-09-07] MEDS: FUROSEMIDE 20MG VIAL IV SCH (08:20)
[2020-09-07] MEDS: ENOXAPARIN SODIUM 40 MG/0.4 ML SYRINGE SQ SCH (08:21)
[2020-09-07] MEDS: INSULIN GLARGINE 100 UNITS/ML 10 ML VIAL SQ SCH ×2 (08:23→21:14)
[2020-09-07] MEDS: BALSAM PERU/CASTOR OIL 60 GM TUBE TP SCH ×2 (08:25→21:13)
[2020-09-07] MEDS: LACTATED RINGERS 1000ML IV SCH (16:00)
[2020-09-08] VITALS (24 sets, daily range): BP systolic 123–153; BP diastolic 69–100
[2020-09-08] MEDS: INSULIN HUMULIN R 100 UNIT/ML 3ML SQ SCH ×5 (00:50→23:52)
[2020-09-08] MEDS: LEVETIRACETAM 1,500 MG in 0.9%NACL 100ML 100 ML IV SCH ×2 (03:42→16:05)
[2020-09-08 04:01] LABS: HEMATOCRIT 36.6 % (42-54); MEAN CORPUSCULAR HEMOGLOBIN 23.5 pg (27.0-33.0); MEAN CORPUSCULAR HGB CONC 30.3 g/dL (32.0-36.0); MEAN CORPUSCULAR VOLUME 77.4 fL (79-99); RED BLOOD CELL COUNT(AUTO) 4.73 MIL/uL (4.50-6.20); RED CELL DISTRIBUTION WIDTH 20.3 % (11.0-15.5); WHITE BLOOD COUNT (AUTO) 10.2 K/uL (4.8-10.8)
[2020-09-08 04:14] LABS: CREATININE 0.9 mg/dL (0.5-1.5); POTASSIUM 4.3 mmol/L (3.5-5.1)
[2020-09-08] MEDS: SOLU-MEDROL 125MG VIAL IVP SCH ×2 (05:49→14:28)
[2020-09-08] MEDS: FOSPHENYTOIN SODIUM 100 MG/2 ML VIAL IV SCH ×3 (05:49→21:04)
[2020-09-08] MEDS: INSULIN GLARGINE 100 UNITS/ML 10 ML VIAL SQ SCH ×2 (07:28→21:03)
[2020-09-08] MEDS: LACTULOSE 20 GM/30 ML UDCUP NG SCH (08:21)
[2020-09-08] MEDS: FAMOTIDINE 20MG VIAL IV SCH ×2 (08:21→21:04)
[2020-09-08] MEDS: METOPROLOL TARTRATE 25 MG TAB PO SCH ×2 (08:21→21:02)
[2020-09-08] MEDS: ASPIRIN 81MG CHEW TAB PO SCH (08:21)
[2020-09-08] MEDS: FUROSEMIDE 20MG VIAL IV SCH (08:21)
[2020-09-08] MEDS: ENOXAPARIN SODIUM 40 MG/0.4 ML SYRINGE SQ SCH (08:22)
[2020-09-08] MEDS: BALSAM PERU/CASTOR OIL 60 GM TUBE TP SCH ×2 (08:22→21:04)
[2020-09-08] MEDS: POLYETHYLENE GLYCOL 3350 17 GM POWD.PACK PO SCH (08:22)
[2020-09-08] MEDS: LACTATED RINGERS 1000ML IV SCH (15:38)
[2020-09-08] MEDS ORDERED: LACTULOSE 20 GM/30 ML UDCUP PO PRN (18:30)
[2020-09-08] MEDS: SOLU-MEDROL 40MG VIAL IVP SCH (21:02)
[2020-09-09] VITALS (23 sets, daily range): BP systolic 113–151; BP diastolic 63–92
[2020-09-09] MEDS: LEVETIRACETAM 1,500 MG in 0.9%NACL 100ML 100 ML IV SCH ×2 (04:07→17:06)
[2020-09-09] MEDS: FOSPHENYTOIN SODIUM 100 MG/2 ML VIAL IV SCH ×3 (05:28→22:10)
[2020-09-09] MEDS: INSULIN HUMULIN R 100 UNIT/ML 3ML SQ SCH ×3 (06:25→17:25)
[2020-09-09] MEDS: SOLU-MEDROL 40MG VIAL IVP SCH ×2 (07:44→22:10)
[2020-09-09] MEDS: METOPROLOL TARTRATE 25 MG TAB PO SCH ×2 (07:44→22:10)
[2020-09-09] MEDS: INSULIN GLARGINE 100 UNITS/ML 10 ML VIAL SQ SCH ×2 (07:44→22:09)
[2020-09-09] MEDS: ASPIRIN 81MG CHEW TAB PO SCH (07:44)
[2020-09-09] MEDS: FUROSEMIDE 20MG VIAL IV SCH (07:44)
[2020-09-09] MEDS: FAMOTIDINE 20MG VIAL IV SCH ×2 (07:44→22:10)
[2020-09-09] MEDS: BALSAM PERU/CASTOR OIL 60 GM TUBE TP SCH ×2 (07:45→22:10)
[2020-09-09] MEDS: ENOXAPARIN SODIUM 40 MG/0.4 ML SYRINGE SQ SCH (07:45)
[2020-09-09] MEDS: POLYETHYLENE GLYCOL 3350 17 GM POWD.PACK PO SCH (07:45)
[2020-09-09] MEDS ORDERED: INSULIN GLARGINE 100 UNITS/ML 10 ML VIAL SQ ONE (22:30)
[2020-09-10] VITALS (23 sets, daily range): BP systolic 120–154; BP diastolic 67–96
[2020-09-10] MEDS: INSULIN HUMULIN R 100 UNIT/ML 3ML SQ SCH ×4 (01:16→18:05)
[2020-09-10 04:31] LABS: BASOPHILS % (AUTO) 0.4 % (0.0-5.0); EOSINOPHILS % (AUTO) 0.3 % (0.0-8.0); LYMPHOCYTES % (AUTO) 11.8 % (21.0-51.0); MEAN CORPUSCULAR HEMOGLOBIN 23.8 pg (27.0-33.0); MEAN CORPUSCULAR HGB CONC 30.5 g/dL (32.0-36.0); MONOCYTES % (AUTO) 6.6 % (3.0-13.0); NEUTROPHILS % (AUTO) 80.3 % (40.0-77.0); PLATELET COUNT (AUTO) 303 K/uL (130-400); RED CELL DISTRIBUTION WIDTH 21.5 % (11.0-15.5); WHITE BLOOD COUNT (AUTO) 10.3 K/uL (4.8-10.8)
[2020-09-10 04:36] LABS: CREATININE 0.9 mg/dL (0.5-1.5)
[2020-09-10] MEDS: LEVETIRACETAM 1,500 MG in 0.9%NACL 100ML 100 ML IV SCH ×2 (04:56→16:13)
[2020-09-10] MEDS: FOSPHENYTOIN SODIUM 100 MG/2 ML VIAL IV SCH ×3 (04:56→21:30)
[2020-09-10] MEDS ORDERED: INSULIN GLARGINE 100 UNITS/ML 10 ML VIAL SQ SCH (07:30)
[2020-09-10] MEDS: ASPIRIN 81MG CHEW TAB PO SCH (08:33)
[2020-09-10] MEDS: FAMOTIDINE 20MG VIAL IV SCH ×2 (08:33→21:30)
[2020-09-10] MEDS: POLYETHYLENE GLYCOL 3350 17 GM POWD.PACK PO SCH (08:33)
[2020-09-10] MEDS: FUROSEMIDE 20MG VIAL IV SCH ×2 (08:33→21:32)
[2020-09-10] MEDS: SOLU-MEDROL 40MG VIAL IVP SCH (08:33)
[2020-09-10] MEDS: METOPROLOL TARTRATE 25 MG TAB PO SCH ×2 (08:33→21:31)
[2020-09-10] MEDS: BALSAM PERU/CASTOR OIL 60 GM TUBE TP SCH ×2 (08:34→21:31)
[2020-09-10] MEDS: ENOXAPARIN SODIUM 40 MG/0.4 ML SYRINGE SQ SCH (08:34)
[2020-09-10] MEDS ORDERED: SOLU-MEDROL 40MG VIAL IVP SCH (21:00)
[2020-09-10] MEDS: INSULIN GLARGINE 100 UNITS/ML 10 ML VIAL SQ SCH (21:34)
[2020-09-11] VITALS (22 sets, daily range): BP systolic 102–178; BP diastolic 60–95
[2020-09-11] MEDS: INSULIN HUMULIN R 100 UNIT/ML 3ML SQ SCH ×4 (00:57→19:12)
[2020-09-11 04:33] LABS: POTASSIUM 4.7 mmol/L (3.5-5.1)
[2020-09-11] MEDS: LEVETIRACETAM 1,500 MG in 0.9%NACL 100ML 100 ML IV SCH (05:07)
[2020-09-11] MEDS: FOSPHENYTOIN SODIUM 100 MG/2 ML VIAL IV SCH ×3 (05:56→21:44)
[2020-09-11] MEDS: POLYETHYLENE GLYCOL 3350 17 GM POWD.PACK PO SCH (07:55)
[2020-09-11] MEDS: FAMOTIDINE 20MG VIAL IV SCH ×2 (07:55→20:06)
[2020-09-11] MEDS: INSULIN GLARGINE 100 UNITS/ML 10 ML VIAL SQ SCH ×2 (08:02→21:45)
[2020-09-11] MEDS: FUROSEMIDE 20MG VIAL IV SCH ×2 (08:03→12:30)
[2020-09-11] MEDS: ASPIRIN 81MG CHEW TAB PO SCH (09:43)
[2020-09-11] MEDS: BALSAM PERU/CASTOR OIL 60 GM TUBE TP SCH ×2 (09:45→21:07)
[2020-09-11] MEDS: ENOXAPARIN SODIUM 40 MG/0.4 ML SYRINGE SQ SCH (09:48)
[2020-09-11] MEDS: METOPROLOL TARTRATE 25 MG TAB PO SCH ×2 (09:59→20:06)
[2020-09-11] MEDS ORDERED: INSULIN HUMULIN R 100 UNIT/ML 3ML ONE (13:08)
[2020-09-11] MEDS ORDERED: 0.9% NACL 250ML 250 ML IV ONE (17:23)
[2020-09-11] MEDS: ACETAMINOPHEN 325 MG TAB PO PRN (19:28)
[2020-09-11] MEDS ORDERED: MORPHINE 4 MG SYG ONE (19:49)
[2020-09-11] MEDS ORDERED: MORPHINE 4 MG SYG IVP PRN (20:00)
[2020-09-11 20:08] LABS: ABG BASE EXCESS 3.8 mmol/L (-2.0-3.0); ABG HCO3 32.6 mmol/L (21.0-28.0); ABG PCO2 68 mmHg (35-48)
[2020-09-12] VITALS (22 sets, daily range): BP systolic 104–150; BP diastolic 63–90
[2020-09-12] MEDS: LEVETIRACETAM 1,500 MG in 0.9%NACL 100ML 100 ML IV SCH ×2 (04:53→15:31)
[2020-09-12] MEDS: FOSPHENYTOIN SODIUM 100 MG/2 ML VIAL IV SCH ×3 (04:54→22:26)
[2020-09-12] MEDS: INSULIN HUMULIN R 100 UNIT/ML 3ML SQ SCH ×4 (07:24→20:43)
[2020-09-12] MEDS: INSULIN GLARGINE 100 UNITS/ML 10 ML VIAL SQ SCH ×2 (07:26→20:42)
[2020-09-12] MEDS: FUROSEMIDE 20MG VIAL IV SCH (08:09)
[2020-09-12] MEDS: METOPROLOL TARTRATE 25 MG TAB PO SCH ×2 (08:09→20:41)
[2020-09-12] MEDS: ASPIRIN 81MG CHEW TAB PO SCH (08:09)
[2020-09-12] MEDS: POLYETHYLENE GLYCOL 3350 17 GM POWD.PACK PO SCH (08:09)
[2020-09-12] MEDS: ENOXAPARIN SODIUM 40 MG/0.4 ML SYRINGE SQ SCH (08:09)
[2020-09-12] MEDS: FAMOTIDINE 20MG VIAL IV SCH ×2 (08:09→20:41)
[2020-09-12] MEDS: BALSAM PERU/CASTOR OIL 60 GM TUBE TP SCH ×2 (08:09→20:42)
[2020-09-12] MEDS: ACETAMINOPHEN 325 MG TAB PO PRN (14:42)
[2020-09-13] VITALS (23 sets, daily range): BP systolic 101–128; BP diastolic 66–80
[2020-09-13] MEDS: LEVETIRACETAM 1,500 MG in 0.9%NACL 100ML 100 ML IV SCH ×2 (04:55→15:32)
[2020-09-13 05:12] LABS: BASOPHILS % (AUTO) 0.3 % (0.0-5.0); EOSINOPHILS % (AUTO) 2.4 % (0.0-8.0); HEMATOCRIT 39.6 % (42-54); LYMPHOCYTES % (AUTO) 16.8 % (21.0-51.0); MEAN CORPUSCULAR HEMOGLOBIN 23.9 pg (27.0-33.0); MEAN CORPUSCULAR HGB CONC 30.1 g/dL (32.0-36.0); MEAN CORPUSCULAR VOLUME 79.7 fL (79-99); MONOCYTES % (AUTO) 7.7 % (3.0-13.0); NEUTROPHILS % (AUTO) 72.4 % (40.0-77.0); PLATELET COUNT (AUTO) 218 K/uL (130-400); RED BLOOD CELL COUNT(AUTO) 4.97 MIL/uL (4.50-6.20); RED CELL DISTRIBUTION WIDTH 21.8 % (11.0-15.5)
[2020-09-13 05:27] LABS: BILIRUBIN,TOTAL 0.4 mg/dL (0.2-1.0); CREATININE 0.8 mg/dL (0.5-1.5); MAGNESIUM 2.1 mg/dL (1.80-2.40); PHOSPHORUS 2.8 mg/dL (2.5-4.9); POTASSIUM 3.9 mmol/L (3.5-5.1); TOTAL PROTEIN, SERUM 6.1 g/dL (6.0-8.3)
[2020-09-13] MEDS: FOSPHENYTOIN SODIUM 100 MG/2 ML VIAL IV SCH ×3 (06:07→21:07)
[2020-09-13 07:09] LABS: ABG BASE EXCESS 6.8 mmol/L (-2.0-3.0); ABG HCO3 30.9 mmol/L (21.0-28.0); ABG OXYGEN SATURATION 98.3 % (95.0-99.0); ABG PCO2 42 mmHg (35-48)
[2020-09-13] MEDS: INSULIN HUMULIN R 100 UNIT/ML 3ML SQ SCH ×4 (07:41→21:13)
[2020-09-13] MEDS: INSULIN GLARGINE 100 UNITS/ML 10 ML VIAL SQ SCH ×2 (07:42→21:14)
[2020-09-13] MEDS: METOPROLOL TARTRATE 25 MG TAB PO SCH ×3 (07:45→21:08)
[2020-09-13] MEDS: FAMOTIDINE 20MG VIAL IV SCH ×2 (07:45→21:08)
[2020-09-13] MEDS: ASPIRIN 81MG CHEW TAB PO SCH (07:45)
[2020-09-13] MEDS: POLYETHYLENE GLYCOL 3350 17 GM POWD.PACK PO SCH (07:45)
[2020-09-13] MEDS: FUROSEMIDE 20MG VIAL IV SCH (07:45)
[2020-09-13] MEDS: ENOXAPARIN SODIUM 40 MG/0.4 ML SYRINGE SQ SCH (07:46)
[2020-09-13] MEDS: BALSAM PERU/CASTOR OIL 60 GM TUBE TP SCH ×2 (07:46→21:17)
[2020-09-14] VITALS (23 sets, daily range): BP systolic 101–132; BP diastolic 47–73
[2020-09-14 03:54] LABS: BASOPHILS % (AUTO) 0.3 % (0.0-5.0); EOSINOPHILS % (AUTO) 0.9 % (0.0-8.0); HEMATOCRIT 36.8 % (42-54); LYMPHOCYTES % (AUTO) 17.4 % (21.0-51.0); MEAN CORPUSCULAR HEMOGLOBIN 24.5 pg (27.0-33.0); MONOCYTES % (AUTO) 7.8 % (3.0-13.0); PLATELET COUNT (AUTO) 190 K/uL (130-400); RED BLOOD CELL COUNT(AUTO) 4.66 MIL/uL (4.50-6.20); RED CELL DISTRIBUTION WIDTH 21.9 % (11.0-15.5); WHITE BLOOD COUNT (AUTO) 10.1 K/uL (4.8-10.8)
[2020-09-14 05:17] LABS: ALBUMIN 1.9 g/dL (3.5-5.0); BILIRUBIN,TOTAL 0.4 mg/dL (0.2-1.0); CREATININE 0.8 mg/dL (0.5-1.5); MAGNESIUM 3.5 mg/dL (1.80-2.40); PHOSPHORUS 2.9 mg/dL (2.5-4.9); POTASSIUM 3.5 mmol/L (3.5-5.1); TOTAL PROTEIN, SERUM 6.3 g/dL (6.0-8.3)
[2020-09-14] MEDS: LEVETIRACETAM 1,500 MG in 0.9%NACL 100ML 100 ML IV SCH ×2 (06:12→16:10)
[2020-09-14] MEDS: FOSPHENYTOIN SODIUM 100 MG/2 ML VIAL IV SCH ×3 (06:12→21:33)
[2020-09-14] MEDS: INSULIN HUMULIN R 100 UNIT/ML 3ML SQ SCH ×4 (07:30→21:54)
[2020-09-14] MEDS: FAMOTIDINE 20MG VIAL IV SCH ×2 (08:27→21:31)
[2020-09-14] MEDS: POLYETHYLENE GLYCOL 3350 17 GM POWD.PACK PO SCH (08:27)
[2020-09-14] MEDS: FUROSEMIDE 20MG VIAL IV SCH (08:27)
[2020-09-14] MEDS: METOPROLOL TARTRATE 25 MG TAB PO SCH ×4 (08:27→21:32)
[2020-09-14] MEDS: ASPIRIN 81MG CHEW TAB PO SCH (08:27)
[2020-09-14] MEDS: ENOXAPARIN SODIUM 40 MG/0.4 ML SYRINGE SQ SCH (08:29)
[2020-09-14] MEDS: BALSAM PERU/CASTOR OIL 60 GM TUBE TP SCH ×2 (08:30→21:32)
[2020-09-14] MEDS: INSULIN GLARGINE 100 UNITS/ML 10 ML VIAL SQ SCH ×2 (08:32→21:55)
[2020-09-15] VITALS (24 sets, daily range): BP systolic 109–134; BP diastolic 61–76
[2020-09-15] MEDS: LEVETIRACETAM 1,500 MG in 0.9%NACL 100ML 100 ML IV SCH ×2 (04:12→15:49)
[2020-09-15 05:55] LABS: BASOPHILS % (AUTO) 0.3 % (0.0-5.0); EOSINOPHILS % (AUTO) 2.9 % (0.0-8.0); HEMATOCRIT 36.6 % (42-54); LYMPHOCYTES % (AUTO) 15.3 % (21.0-51.0); MEAN CORPUSCULAR HEMOGLOBIN 23.7 pg (27.0-33.0); MEAN CORPUSCULAR HGB CONC 30.1 g/dL (32.0-36.0); MEAN CORPUSCULAR VOLUME 78.7 fL (79-99); MONOCYTES % (AUTO) 6.3 % (3.0-13.0); NEUTROPHILS % (AUTO) 74.8 % (40.0-77.0); PLATELET COUNT (AUTO) 190 K/uL (130-400); RED BLOOD CELL COUNT(AUTO) 4.65 MIL/uL (4.50-6.20); RED CELL DISTRIBUTION WIDTH 22.1 % (11.0-15.5); WHITE BLOOD COUNT (AUTO) 7.5 K/uL (4.8-10.8)
[2020-09-15 06:15] LABS: ALBUMIN 1.7 g/dL (3.5-5.0); BILIRUBIN,TOTAL 0.4 mg/dL (0.2-1.0); CREATININE 0.8 mg/dL (0.5-1.5); MAGNESIUM 2.2 mg/dL (1.80-2.40); PHOSPHORUS 2.7 mg/dL (2.5-4.9); POTASSIUM 3.4 mmol/L (3.5-5.1); TOTAL PROTEIN, SERUM 6.2 g/dL (6.0-8.3)
[2020-09-15] MEDS: FOSPHENYTOIN SODIUM 100 MG/2 ML VIAL IV SCH ×3 (06:38→21:31)
[2020-09-15] MEDS: POLYETHYLENE GLYCOL 3350 17 GM POWD.PACK PO SCH (08:22)
[2020-09-15] MEDS: ASPIRIN 81MG CHEW TAB PO SCH (08:23)
[2020-09-15] MEDS: FUROSEMIDE 20MG VIAL IV SCH (08:23)
[2020-09-15] MEDS: FAMOTIDINE 20MG VIAL IV SCH ×2 (08:23→21:32)
[2020-09-15] MEDS: METOPROLOL TARTRATE 25 MG TAB PO SCH ×2 (08:23→21:31)
[2020-09-15] MEDS: ENOXAPARIN SODIUM 40 MG/0.4 ML SYRINGE SQ SCH (08:24)
[2020-09-15] MEDS: BALSAM PERU/CASTOR OIL 60 GM TUBE TP SCH ×2 (08:25→21:32)
[2020-09-15] MEDS: INSULIN GLARGINE 100 UNITS/ML 10 ML VIAL SQ SCH ×2 (08:26→22:01)
[2020-09-15] MEDS: INSULIN HUMULIN R 100 UNIT/ML 3ML SQ SCH ×4 (08:27→22:02)
[2020-09-16] VITALS (12 sets, daily range): BP systolic 114–129; BP diastolic 59–75
[2020-09-16] MEDS: LEVETIRACETAM 1,500 MG in 0.9%NACL 100ML 100 ML IV SCH ×2 (04:32→16:34)
[2020-09-16] MEDS: FOSPHENYTOIN SODIUM 100 MG/2 ML VIAL IV SCH ×3 (06:25→20:21)
[2020-09-16] MEDS: POLYETHYLENE GLYCOL 3350 17 GM POWD.PACK PO SCH (09:00)
[2020-09-16] MEDS: ENOXAPARIN SODIUM 40 MG/0.4 ML SYRINGE SQ SCH (09:00)
[2020-09-16] MEDS: FAMOTIDINE 20MG VIAL IV SCH ×2 (09:00→20:22)
[2020-09-16] MEDS: METOPROLOL TARTRATE 25 MG TAB PO SCH ×2 (09:01→20:22)
[2020-09-16] MEDS: ASPIRIN 81MG CHEW TAB PO SCH (09:01)
[2020-09-16] MEDS: BALSAM PERU/CASTOR OIL 60 GM TUBE TP SCH ×2 (09:01→20:22)
[2020-09-16 09:08] LABS: BASOPHILS % (AUTO) 0.4 % (0.0-5.0); EOSINOPHILS % (AUTO) 2.5 % (0.0-8.0); HEMATOCRIT 36.8 % (42-54); LYMPHOCYTES % (AUTO) 23.9 % (21.0-51.0); MEAN CORPUSCULAR HEMOGLOBIN 24.4 pg (27.0-33.0); MEAN CORPUSCULAR HGB CONC 30.4 g/dL (32.0-36.0); MEAN CORPUSCULAR VOLUME 80.2 fL (79-99); MONOCYTES % (AUTO) 15.3 % (3.0-13.0); NEUTROPHILS % (AUTO) 57.5 % (40.0-77.0); PLATELET COUNT (AUTO) 168 K/uL (130-400); RED BLOOD CELL COUNT(AUTO) 4.59 MIL/uL (4.50-6.20); RED CELL DISTRIBUTION WIDTH 22.4 % (11.0-15.5); WHITE BLOOD COUNT (AUTO) 6.9 K/uL (4.8-10.8)
[2020-09-16] MEDS: INSULIN GLARGINE 100 UNITS/ML 10 ML VIAL SQ SCH ×2 (09:09→20:42)
[2020-09-16] MEDS: INSULIN HUMULIN R 100 UNIT/ML 3ML SQ SCH ×4 (09:12→20:40)
[2020-09-16 09:22] LABS: ALANINE AMINOTRANSFERASE 202 U/L (12-78); ALBUMIN 1.6 g/dL (3.5-5.0); AMMONIA < 3 umol/L (11-32); ASPARTATE AMINOTRANSFERASE 148 U/L (10-37); BILIRUBIN,TOTAL 0.5 mg/dL (0.2-1.0); CARBON DIOXIDE 34 mmol/L (21-32); CHLORIDE 107 mmol/L (101-111); CREATININE 0.7 mg/dL (0.5-1.5); GLOMERULAR FILTR. RATE CALC 115 mL/min (>60); GLUCOSE,RANDOM 182 mg/dL (70-105); PHOSPHORUS 2.7 mg/dL (2.5-4.9); POTASSIUM 3.7 mmol/L (3.5-5.1); SODIUM SERUM 145 mmol/L (136-145); TOTAL PROTEIN, SERUM 6.2 g/dL (6.0-8.3); UREA NITROGEN, BLOOD 25 mg/dL (7-18)
[2020-09-16] MEDS: FUROSEMIDE 20MG VIAL IV SCH (09:24)
[2020-09-17] VITALS (15 sets, daily range): BP systolic 102–149; BP diastolic 61–94
[2020-09-17 04:25] LABS: BASOPHILS % (AUTO) 0.4 % (0.0-5.0); EOSINOPHILS % (AUTO) 4.4 % (0.0-8.0); HEMATOCRIT 35.4 % (42-54); LYMPHOCYTES % (AUTO) 27.6 % (21.0-51.0); MEAN CORPUSCULAR HEMOGLOBIN 24.3 pg (27.0-33.0); MEAN CORPUSCULAR HGB CONC 30.5 g/dL (32.0-36.0); MEAN CORPUSCULAR VOLUME 79.6 fL (79-99); MONOCYTES % (AUTO) 9.5 % (3.0-13.0); NEUTROPHILS % (AUTO) 57.5 % (40.0-77.0); PLATELET COUNT (AUTO) 191 K/uL (130-400); RED BLOOD CELL COUNT(AUTO) 4.45 MIL/uL (4.50-6.20); RED CELL DISTRIBUTION WIDTH 22.4 % (11.0-15.5); WHITE BLOOD COUNT (AUTO) 5.3 K/uL (4.8-10.8)
[2020-09-17 04:43] LABS: ALBUMIN 1.6 g/dL (3.5-5.0); BILIRUBIN,TOTAL 0.3 mg/dL (0.2-1.0); CREATININE 0.6 mg/dL (0.5-1.5); MAGNESIUM 1.9 mg/dL (1.80-2.40); PHOSPHORUS 2.9 mg/dL (2.5-4.9); POTASSIUM 3.9 mmol/L (3.5-5.1); TOTAL PROTEIN, SERUM 6.4 g/dL (6.0-8.3)
[2020-09-17] MEDS: LEVETIRACETAM 1,500 MG in 0.9%NACL 100ML 100 ML IV SCH ×2 (05:02→15:29)
[2020-09-17] MEDS: FOSPHENYTOIN SODIUM 100 MG/2 ML VIAL IV SCH ×3 (06:00→21:34)
[2020-09-17] MEDS: INSULIN HUMULIN R 100 UNIT/ML 3ML SQ SCH ×4 (08:21→21:42)
[2020-09-17] MEDS: FUROSEMIDE 20MG VIAL IV SCH (08:22)
[2020-09-17] MEDS: ASPIRIN 81MG CHEW TAB PO SCH (08:22)
[2020-09-17] MEDS: FAMOTIDINE 20MG VIAL IV SCH ×2 (08:22→21:33)
[2020-09-17] MEDS: INSULIN GLARGINE 100 UNITS/ML 10 ML VIAL SQ SCH ×2 (08:22→21:35)
[2020-09-17] MEDS: BALSAM PERU/CASTOR OIL 60 GM TUBE TP SCH ×2 (08:23→21:34)
[2020-09-17] MEDS: METOPROLOL TARTRATE 25 MG TAB PO SCH ×2 (08:23→21:33)
[2020-09-17] MEDS: POLYETHYLENE GLYCOL 3350 17 GM POWD.PACK PO SCH (08:23)
[2020-09-17] MEDS: ENOXAPARIN SODIUM 40 MG/0.4 ML SYRINGE SQ SCH (08:23)
[2020-09-17] MEDS ORDERED: MIDAZOLAM HCL 1 MG/ML 2ML VIAL ONE (14:52)
[2020-09-17] MEDS ORDERED: ROCURONIUM BROMIDE 10MG/1ML 5ML VL IV SCH (15:15)
[2020-09-17] MEDS: FENTANYL 2500MCG+NS 250ML 250 ML IV SCH (15:30)
[2020-09-18] VITALS (22 sets, daily range): BP systolic 106–132; BP diastolic 66–83
[2020-09-18 03:44] LABS: BASOPHILS % (AUTO) 0.5 % (0.0-5.0); EOSINOPHILS % (AUTO) 5.1 % (0.0-8.0); HEMATOCRIT 38.3 % (42-54); LYMPHOCYTES % (AUTO) 27.7 % (21.0-51.0); MEAN CORPUSCULAR HEMOGLOBIN 24.9 pg (27.0-33.0); MEAN CORPUSCULAR HGB CONC 30.8 g/dL (32.0-36.0); MEAN CORPUSCULAR VOLUME 80.8 fL (79-99); MONOCYTES % (AUTO) 9.6 % (3.0-13.0); NEUTROPHILS % (AUTO) 56.6 % (40.0-77.0); PLATELET COUNT (AUTO) 177 K/uL (130-400); RED BLOOD CELL COUNT(AUTO) 4.74 MIL/uL (4.50-6.20); RED CELL DISTRIBUTION WIDTH 22.7 % (11.0-15.5); WHITE BLOOD COUNT (AUTO) 5.7 K/uL (4.8-10.8)
[2020-09-18 04:05] LABS: ALBUMIN 1.7 g/dL (3.5-5.0); BILIRUBIN,TOTAL 0.3 mg/dL (0.2-1.0); CREATININE 0.8 mg/dL (0.5-1.5); MAGNESIUM 2.2 mg/dL (1.80-2.40); PHOSPHORUS 2.9 mg/dL (2.5-4.9); POTASSIUM 3.7 mmol/L (3.5-5.1); TOTAL PROTEIN, SERUM 6.7 g/dL (6.0-8.3)
[2020-09-18] MEDS: FOSPHENYTOIN SODIUM 100 MG/2 ML VIAL IV SCH ×3 (05:26→21:06)
[2020-09-18] MEDS: LEVETIRACETAM 1,500 MG in 0.9%NACL 100ML 100 ML IV SCH ×2 (05:27→16:57)
[2020-09-18] MEDS: INSULIN HUMULIN R 100 UNIT/ML 3ML SQ SCH ×4 (07:32→21:07)
[2020-09-18] MEDS: INSULIN GLARGINE 100 UNITS/ML 10 ML VIAL SQ SCH ×2 (07:33→21:08)
[2020-09-18] MEDS: POLYETHYLENE GLYCOL 3350 17 GM POWD.PACK PO SCH (09:57)
[2020-09-18] MEDS: BALSAM PERU/CASTOR OIL 60 GM TUBE TP SCH ×2 (09:57→21:06)
[2020-09-18] MEDS: FAMOTIDINE 20MG VIAL IV SCH ×2 (09:57→21:05)
[2020-09-18] MEDS: ASPIRIN 81MG CHEW TAB PO SCH (09:57)
[2020-09-18] MEDS: FUROSEMIDE 20MG VIAL IV SCH (09:57)
[2020-09-18] MEDS: ENOXAPARIN SODIUM 40 MG/0.4 ML SYRINGE SQ SCH (09:58)
[2020-09-18] MEDS: METOPROLOL TARTRATE 25 MG TAB PO SCH ×2 (09:58→21:06)
[2020-09-18] MEDS ORDERED: FUROSEMIDE 40MG VIAL IV ONE (18:00)
[2020-09-18] MEDS: FENTANYL 2500MCG+NS 250ML 250 ML IV SCH (22:22)
[2020-09-19] VITALS (20 sets, daily range): BP systolic 109–141; BP diastolic 65–89
[2020-09-19 03:59] LABS: BASOPHILS % (AUTO) 0.2 % (0.0-5.0); EOSINOPHILS % (AUTO) 6.3 % (0.0-8.0); HEMATOCRIT 36.7 % (42-54); LYMPHOCYTES % (AUTO) 34.2 % (21.0-51.0); MEAN CORPUSCULAR HEMOGLOBIN 24.2 pg (27.0-33.0); MEAN CORPUSCULAR HGB CONC 29.7 g/dL (32.0-36.0); MEAN CORPUSCULAR VOLUME 81.4 fL (79-99); MONOCYTES % (AUTO) 9.5 % (3.0-13.0); NEUTROPHILS % (AUTO) 49.3 % (40.0-77.0); PLATELET COUNT (AUTO) 187 K/uL (130-400); RED BLOOD CELL COUNT(AUTO) 4.51 MIL/uL (4.50-6.20); RED CELL DISTRIBUTION WIDTH 22.6 % (11.0-15.5); WHITE BLOOD COUNT (AUTO) 5.8 K/uL (4.8-10.8)
[2020-09-19 04:19] LABS: ALBUMIN 1.6 g/dL (3.5-5.0); BILIRUBIN,TOTAL 0.4 mg/dL (0.2-1.0); CREATININE 0.9 mg/dL (0.5-1.5); POTASSIUM 3.8 mmol/L (3.5-5.1); TOTAL PROTEIN, SERUM 6.4 g/dL (6.0-8.3)
[2020-09-19] MEDS: FOSPHENYTOIN SODIUM 100 MG/2 ML VIAL IV SCH ×3 (05:03→21:42)
[2020-09-19] MEDS: LEVETIRACETAM 1,500 MG in 0.9%NACL 100ML 100 ML IV SCH ×2 (05:04→16:31)
[2020-09-19] MEDS: INSULIN HUMULIN R 100 UNIT/ML 3ML SQ SCH ×4 (07:28→21:38)
[2020-09-19] MEDS: INSULIN GLARGINE 100 UNITS/ML 10 ML VIAL SQ SCH ×2 (07:29→21:38)
[2020-09-19] MEDS: BALSAM PERU/CASTOR OIL 60 GM TUBE TP SCH ×2 (08:01→21:37)
[2020-09-19] MEDS: POLYETHYLENE GLYCOL 3350 17 GM POWD.PACK PO SCH (08:25)
[2020-09-19] MEDS: FAMOTIDINE 20MG VIAL IV SCH ×2 (08:25→21:37)
[2020-09-19] MEDS: FUROSEMIDE 20MG VIAL IV SCH (08:26)
[2020-09-19] MEDS: ASPIRIN 81MG CHEW TAB PO SCH (08:27)
[2020-09-19] MEDS: ENOXAPARIN SODIUM 40 MG/0.4 ML SYRINGE SQ SCH (08:28)
[2020-09-19] MEDS: METOPROLOL TARTRATE 25 MG TAB PO SCH ×2 (08:31→21:37)
[2020-09-19] MEDS: ACETAMINOPHEN 325 MG TAB PO PRN (09:25)
[2020-09-20] VITALS (24 sets, daily range): BP systolic 114–132; BP diastolic 66–80
[2020-09-20 03:31] LABS: HEMATOCRIT 36.1 % (42-54); MEAN CORPUSCULAR HEMOGLOBIN 24.2 pg (27.0-33.0); MEAN CORPUSCULAR HGB CONC 29.6 g/dL (32.0-36.0); MEAN CORPUSCULAR VOLUME 81.7 fL (79-99); RED BLOOD CELL COUNT(AUTO) 4.42 MIL/uL (4.50-6.20); RED CELL DISTRIBUTION WIDTH 22.7 % (11.0-15.5); WHITE BLOOD COUNT (AUTO) 5.3 K/uL (4.8-10.8)
[2020-09-20 03:40] LABS: CREATININE 0.8 mg/dL (0.5-1.5); MAGNESIUM 1.9 mg/dL (1.80-2.40); POTASSIUM 4.1 mmol/L (3.5-5.1)
[2020-09-20] MEDS: FENTANYL 2500MCG+NS 250ML 250 ML IV SCH (03:52)
[2020-09-20] MEDS: FOSPHENYTOIN SODIUM 100 MG/2 ML VIAL IV SCH ×3 (05:07→21:23)
[2020-09-20] MEDS: LEVETIRACETAM 1,500 MG in 0.9%NACL 100ML 100 ML IV SCH ×2 (05:07→15:39)
[2020-09-20] MEDS: INSULIN HUMULIN R 100 UNIT/ML 3ML SQ SCH ×4 (07:39→20:47)
[2020-09-20] MEDS: INSULIN GLARGINE 100 UNITS/ML 10 ML VIAL SQ SCH ×2 (07:40→20:47)
[2020-09-20] MEDS: FAMOTIDINE 20MG VIAL IV SCH ×2 (09:21→20:23)
[2020-09-20] MEDS: ASPIRIN 81MG CHEW TAB PO SCH (09:22)
[2020-09-20] MEDS: ENOXAPARIN SODIUM 40 MG/0.4 ML SYRINGE SQ SCH (09:22)
[2020-09-20] MEDS: FUROSEMIDE 20MG VIAL IV SCH (09:22)
[2020-09-20] MEDS: POLYETHYLENE GLYCOL 3350 17 GM POWD.PACK PO SCH (09:22)
[2020-09-20] MEDS: METOPROLOL TARTRATE 25 MG TAB PO SCH ×2 (09:22→20:23)
[2020-09-20] MEDS: BALSAM PERU/CASTOR OIL 60 GM TUBE TP SCH ×2 (09:22→20:23)
[2020-09-21] VITALS (24 sets, daily range): BP systolic 111–146; BP diastolic 65–83
[2020-09-21] MEDS: LEVETIRACETAM 1,500 MG in 0.9%NACL 100ML 100 ML IV SCH ×2 (03:40→16:38)
[2020-09-21 03:45] LABS: HEMATOCRIT 38.5 % (42-54); MEAN CORPUSCULAR HEMOGLOBIN 24.5 pg (27.0-33.0); MEAN CORPUSCULAR HGB CONC 30.1 g/dL (32.0-36.0); MEAN CORPUSCULAR VOLUME 81.2 fL (79-99); RED BLOOD CELL COUNT(AUTO) 4.74 MIL/uL (4.50-6.20); RED CELL DISTRIBUTION WIDTH 23.5 % (11.0-15.5)
[2020-09-21 03:56] LABS: CREATININE 0.9 mg/dL (0.5-1.5); MAGNESIUM 2.2 mg/dL (1.80-2.40); POTASSIUM 4.1 mmol/L (3.5-5.1)
[2020-09-21] MEDS: FOSPHENYTOIN SODIUM 100 MG/2 ML VIAL IV SCH ×3 (05:02→21:01)
[2020-09-21] MEDS: METOPROLOL TARTRATE 25 MG TAB PO SCH ×2 (08:27→20:49)
[2020-09-21] MEDS: ASPIRIN 81MG CHEW TAB PO SCH (08:27)
[2020-09-21] MEDS: POLYETHYLENE GLYCOL 3350 17 GM POWD.PACK PO SCH (08:28)
[2020-09-21] MEDS: FAMOTIDINE 20MG VIAL IV SCH ×2 (08:28→20:49)
[2020-09-21] MEDS: FUROSEMIDE 20MG VIAL IV SCH (08:28)
[2020-09-21] MEDS: ENOXAPARIN SODIUM 40 MG/0.4 ML SYRINGE SQ SCH (08:28)
[2020-09-21] MEDS: BALSAM PERU/CASTOR OIL 60 GM TUBE TP SCH ×2 (08:29→20:52)
[2020-09-21] MEDS: INSULIN GLARGINE 100 UNITS/ML 10 ML VIAL SQ SCH ×2 (08:31→20:52)
[2020-09-21] MEDS: FENTANYL 2500MCG+NS 250ML 250 ML IV SCH (09:07)
[2020-09-21] MEDS: INSULIN HUMULIN R 100 UNIT/ML 3ML SQ SCH ×3 (12:01→23:37)
[2020-09-21 15:03] LABS: ABG BASE EXCESS 3.4 mmol/L (-2.0-3.0); ABG HCO3 27.2 mmol/L (21.0-28.0); ABG OXYGEN SATURATION 97.1 % (95.0-99.0); ABG PCO2 39 mmHg (35-48)
[2020-09-21] MEDS ORDERED: MIDAZOLAM HCL 1 MG/ML 2ML VIAL IVP SCH (16:30)
[2020-09-21] MEDS ORDERED: ROCURONIUM BROMIDE 10MG/1ML 5ML VL IV SCH (16:30)
[2020-09-22] VITALS (24 sets, daily range): BP systolic 88–124; BP diastolic 38–79
[2020-09-22 03:54] LABS: MEAN CORPUSCULAR HEMOGLOBIN 24.7 pg (27.0-33.0); MEAN CORPUSCULAR HGB CONC 30.3 g/dL (32.0-36.0); MEAN CORPUSCULAR VOLUME 81.6 fL (79-99); RED BLOOD CELL COUNT(AUTO) 4.29 MIL/uL (4.50-6.20); RED CELL DISTRIBUTION WIDTH 23.4 % (11.0-15.5); WHITE BLOOD COUNT (AUTO) 7.6 K/uL (4.8-10.8)
[2020-09-22 04:05] LABS: CREATININE 1.6 mg/dL (0.5-1.5); POTASSIUM 3.4 mmol/L (3.5-5.1)
[2020-09-22] MEDS: LEVETIRACETAM 1,500 MG in 0.9%NACL 100ML 100 ML IV SCH ×2 (04:17→16:20)
[2020-09-22] MEDS: FOSPHENYTOIN SODIUM 100 MG/2 ML VIAL IV SCH ×3 (04:17→21:36)
[2020-09-22 04:49] LABS: ABG BASE EXCESS 5.8 mmol/L (-2.0-3.0); ABG HCO3 31.3 mmol/L (21.0-28.0); ABG OXYGEN SATURATION 97.8 % (95.0-99.0); ABG PCO2 48 mmHg (35-48)
[2020-09-22] MEDS: INSULIN HUMULIN R 100 UNIT/ML 3ML SQ SCH ×4 (05:58→23:22)
[2020-09-22] MEDS: FENTANYL 2500MCG+NS 250ML 250 ML IV SCH ×2 (07:32→23:23)
[2020-09-22] MEDS: INSULIN GLARGINE 100 UNITS/ML 10 ML VIAL SQ SCH ×2 (08:00→21:02)
[2020-09-22] MEDS: METOPROLOL TARTRATE 25 MG TAB PO SCH ×2 (08:01→20:49)
[2020-09-22] MEDS: ASPIRIN 81MG CHEW TAB PO SCH (08:01)
[2020-09-22] MEDS: POLYETHYLENE GLYCOL 3350 17 GM POWD.PACK PO SCH (08:01)
[2020-09-22] MEDS: FAMOTIDINE 20MG VIAL IV SCH ×2 (08:02→20:57)
[2020-09-22] MEDS: FUROSEMIDE 20MG VIAL IV SCH (08:02)
[2020-09-22] MEDS: ENOXAPARIN SODIUM 40 MG/0.4 ML SYRINGE SQ SCH (08:03)
[2020-09-22] MEDS: BALSAM PERU/CASTOR OIL 60 GM TUBE TP SCH ×2 (08:03→20:57)
[2020-09-22] MEDS ORDERED: POTASSIUM CHLORIDE 20 MEQ/100 ML BAG IV SCH (17:15)
[2020-09-22] MEDS: FUROSEMIDE 40MG VIAL IV SCH (17:31)
[2020-09-22] MEDS ORDERED: NOREPINEPHRIN 8MG/250ML NS PMX 250 ML IV PRN (19:00)
[2020-09-22] MEDS ORDERED: NOREPINEPHRIN 4MG/NS 250ML 250 ML IV PRN (19:15)
[2020-09-23] VITALS (24 sets, daily range): BP systolic 86–125; BP diastolic 39–77
[2020-09-23] MEDS: FUROSEMIDE 40MG VIAL IV SCH ×2 (01:09→08:50)
[2020-09-23] MEDS: LEVETIRACETAM 1,500 MG in 0.9%NACL 100ML 100 ML IV SCH ×2 (05:01→16:26)
[2020-09-23] MEDS: FOSPHENYTOIN SODIUM 100 MG/2 ML VIAL IV SCH ×3 (05:01→21:02)
[2020-09-23] MEDS: INSULIN HUMULIN R 100 UNIT/ML 3ML SQ SCH ×4 (06:02→23:55)
[2020-09-23 06:08] LABS: HEMATOCRIT 33.4 % (42-54); MEAN CORPUSCULAR HGB CONC 30.8 g/dL (32.0-36.0); MEAN CORPUSCULAR VOLUME 81.1 fL (79-99); PLATELET COUNT (AUTO) 224 K/uL (130-400); RED BLOOD CELL COUNT(AUTO) 4.12 MIL/uL (4.50-6.20); RED CELL DISTRIBUTION WIDTH 23.9 % (11.0-15.5); WHITE BLOOD COUNT (AUTO) 7.5 K/uL (4.8-10.8)
[2020-09-23 06:20] LABS: CREATININE 0.8 mg/dL (0.5-1.5); POTASSIUM 3.8 mmol/L (3.5-5.1)
[2020-09-23] MEDS: INSULIN GLARGINE 100 UNITS/ML 10 ML VIAL SQ SCH ×2 (08:45→20:33)
[2020-09-23] MEDS: ENOXAPARIN SODIUM 40 MG/0.4 ML SYRINGE SQ SCH (08:47)
[2020-09-23] MEDS: FAMOTIDINE 20MG VIAL IV SCH ×2 (08:47→20:32)
[2020-09-23] MEDS: POLYETHYLENE GLYCOL 3350 17 GM POWD.PACK PO SCH (08:47)
[2020-09-23] MEDS: ASPIRIN 81MG CHEW TAB PO SCH (08:47)
[2020-09-23] MEDS: METOPROLOL TARTRATE 25 MG TAB PO SCH ×2 (08:50→20:32)
[2020-09-23] MEDS: BALSAM PERU/CASTOR OIL 60 GM TUBE TP SCH ×2 (08:50→20:35)
[2020-09-23 09:52] LABS: APPEARANCE,URINE CLOUDY (CLEAR); BILIRUBIN,URINE NEGATIVE (NEGATIVE); COLOR,URINE YELLOW (YELLOW); GLUCOSE, URINE (UA) NEGATIVE (NEGATIVE); KETONES,URINE NEGATIVE (NEGATIVE); LEUKOCYTE ESTERASE ,URINE LARGE (NEGATIVE); NITRATE,URINE NEGATIVE (NEGATIVE); OCCULT BLOOD,URINE MODERATE (NEGATIVE); PROTEIN,URINE NEGATIVE (NEGATIVE)
[2020-09-23 10:11] LABS: YEAST,URINE BUDDING Moderate /HPF (None Seen)
[2020-09-23 10:12] LABS: BACTERIA,URINE Moderate /HPF (None Seen)
[2020-09-23 10:14] LABS: SQUAMOUS EPITHELIAL CELL,UR None Seen /HPF (0-2)
[2020-09-23] MEDS ORDERED: POLYETHYLENE GLYCOL 3350 17 GM POWD.PACK PO PRN (11:15)
[2020-09-23] MEDS ORDERED: CEFTRIAXONE 500MG VIAL IV SCH (11:15)
[2020-09-23] MEDS ORDERED: CEFTRIAXONE 1G VIAL ONE (11:46)
[2020-09-23] MEDS: CEFTRIAXONE 1G VIAL IVP SCH (11:58)
[2020-09-23 12:50] LABS: ABG BASE EXCESS 6.5 mmol/L (-2.0-3.0); ABG OXYGEN SATURATION 95.6 % (95.0-99.0); ABG PCO2 44 mmHg (35-48)
[2020-09-23] MEDS: FUROSEMIDE 40 MG TABLET PO SCH (16:26)
[2020-09-24] VITALS (24 sets, daily range): BP systolic 95–133; BP diastolic 48–82
[2020-09-24 03:54] LABS: BASOPHILS % (AUTO) 0.1 % (0.0-5.0); EOSINOPHILS % (AUTO) 3.8 % (0.0-8.0); HEMATOCRIT 34.9 % (42-54); LYMPHOCYTES % (AUTO) 20.5 % (21.0-51.0); MEAN CORPUSCULAR HEMOGLOBIN 24.5 pg (27.0-33.0); MEAN CORPUSCULAR HGB CONC 30.7 g/dL (32.0-36.0); MONOCYTES % (AUTO) 9.5 % (3.0-13.0); PLATELET COUNT (AUTO) 166 K/uL (130-400); RED BLOOD CELL COUNT(AUTO) 4.36 MIL/uL (4.50-6.20); RED CELL DISTRIBUTION WIDTH 23.6 % (11.0-15.5); WHITE BLOOD COUNT (AUTO) 7.4 K/uL (4.8-10.8)
[2020-09-24 04:02] LABS: CREATININE 0.8 mg/dL (0.5-1.5); MAGNESIUM 1.8 mg/dL (1.80-2.40); PHOSPHORUS 2.5 mg/dL (2.5-4.9); POTASSIUM 3.8 mmol/L (3.5-5.1)
[2020-09-24] MEDS: LEVETIRACETAM 1,500 MG in 0.9%NACL 100ML 100 ML IV SCH ×2 (04:53→16:35)
[2020-09-24] MEDS: FOSPHENYTOIN SODIUM 100 MG/2 ML VIAL IV SCH ×3 (05:21→21:27)
[2020-09-24] MEDS: INSULIN HUMULIN R 100 UNIT/ML 3ML SQ SCH ×3 (06:11→17:32)
[2020-09-24] MEDS: METOPROLOL TARTRATE 25 MG TAB PO SCH ×2 (08:19→21:27)
[2020-09-24] MEDS: ASPIRIN 81MG CHEW TAB PO SCH (08:19)
[2020-09-24] MEDS: FAMOTIDINE 20MG VIAL IV SCH ×2 (08:20→21:27)
[2020-09-24] MEDS: ENOXAPARIN SODIUM 40 MG/0.4 ML SYRINGE SQ SCH (08:21)
[2020-09-24] MEDS: INSULIN GLARGINE 100 UNITS/ML 10 ML VIAL SQ SCH ×2 (08:27→21:29)
[2020-09-24] MEDS: FUROSEMIDE 40 MG TABLET PO SCH ×2 (08:30→16:35)
[2020-09-24] MEDS: BALSAM PERU/CASTOR OIL 60 GM TUBE TP SCH ×2 (08:30→21:31)
[2020-09-24] MEDS ORDERED: CEFTRIAXONE 500MG VIAL IV SCH (09:00)
[2020-09-24] MEDS: ACETAMINOPHEN 325 MG TAB PO PRN (11:51)
[2020-09-24] MEDS: CEFTRIAXONE 1G VIAL IVP SCH (11:52)
[2020-09-25] VITALS (24 sets, daily range): BP systolic 100–151; BP diastolic 51–87
[2020-09-25] MEDS: INSULIN HUMULIN R 100 UNIT/ML 3ML SQ SCH ×4 (00:34→17:52)
[2020-09-25] MEDS: LEVETIRACETAM 1,500 MG in 0.9%NACL 100ML 100 ML IV SCH ×2 (05:09→16:09)
[2020-09-25] MEDS: FOSPHENYTOIN SODIUM 100 MG/2 ML VIAL IV SCH ×2 (05:09→21:27)
[2020-09-25] MEDS: ASPIRIN 81MG CHEW TAB PO SCH (08:02)
[2020-09-25] MEDS: FAMOTIDINE 20MG VIAL IV SCH ×2 (08:02→20:21)
[2020-09-25] MEDS: METOPROLOL TARTRATE 25 MG TAB PO SCH ×2 (08:02→20:21)
[2020-09-25] MEDS: ENOXAPARIN SODIUM 40 MG/0.4 ML SYRINGE SQ SCH (08:03)
[2020-09-25] MEDS: FUROSEMIDE 40 MG TABLET PO SCH ×2 (08:03→16:09)
[2020-09-25] MEDS: BALSAM PERU/CASTOR OIL 60 GM TUBE TP SCH ×2 (08:04→20:17)
[2020-09-25] MEDS: INSULIN GLARGINE 100 UNITS/ML 10 ML VIAL SQ SCH ×2 (08:04→20:21)
[2020-09-25 09:57] LABS: BASOPHILS % (AUTO) 0.4 % (0.0-5.0); EOSINOPHILS % (AUTO) 2.1 % (0.0-8.0); HEMATOCRIT 32.1 % (42-54); LYMPHOCYTES % (AUTO) 26.7 % (21.0-51.0); MEAN CORPUSCULAR HEMOGLOBIN 25.3 pg (27.0-33.0); MEAN CORPUSCULAR HGB CONC 31.2 g/dL (32.0-36.0); MEAN CORPUSCULAR VOLUME 81.3 fL (79-99); MONOCYTES % (AUTO) 8.3 % (3.0-13.0); NEUTROPHILS % (AUTO) 61.7 % (40.0-77.0); PLATELET COUNT (AUTO) 271 K/uL (130-400); RED BLOOD CELL COUNT(AUTO) 3.95 MIL/uL (4.50-6.20); RED CELL DISTRIBUTION WIDTH 24.2 % (11.0-15.5); WHITE BLOOD COUNT (AUTO) 7.2 K/uL (4.8-10.8)
[2020-09-25] MEDS ORDERED: ALTEPLASE 2MG VIAL 2 MG/VIAL VIAL IVCATH SCH (10:00)
[2020-09-25 10:10] LABS: ALBUMIN 1.4 g/dL (3.5-5.0); CREATININE 0.8 mg/dL (0.5-1.5); MAGNESIUM 2.4 mg/dL (1.80-2.40); POTASSIUM 3.2 mmol/L (3.5-5.1)
[2020-09-25] MEDS: ARTIFICIAL TEARS 3.5 GM OINTMENT OD SCH ×2 (10:12→20:18)
[2020-09-25] MEDS: CEFTRIAXONE 1G VIAL IVP SCH (11:42)
[2020-09-25] MEDS ORDERED: LIDOCAINE HCL-MPF 1% 2ML VIAL IV PRN (13:00)
[2020-09-25] MEDS ORDERED: POTASSIUM CHLORIDE 20MEQ/100ML 100 ML IV PRN ×2 (13:00)
[2020-09-25] MEDS: POTASSIUM CHLORIDE 10% ELIXIR 20 MEQ/15 ML UDCUP PO PRN ×2 (14:19→16:09)
[2020-09-25] MEDS: FOSPHENYTOIN SODIUM 200 MG in 0.9%NACL 50ML 50 ML IV SCH (14:19)
[2020-09-26] VITALS (24 sets, daily range): BP systolic 119–141; BP diastolic 67–96
[2020-09-26] MEDS: LEVETIRACETAM 1,500 MG in 0.9%NACL 100ML 100 ML IV SCH ×2 (03:33→15:06)
[2020-09-26 03:49] LABS: CREATININE 0.8 mg/dL (0.5-1.5); POTASSIUM 3.8 mmol/L (3.5-5.1)
[2020-09-26] MEDS: FOSPHENYTOIN SODIUM 100 MG/2 ML VIAL IV SCH ×2 (05:07→23:28)
[2020-09-26] MEDS: INSULIN HUMULIN R 100 UNIT/ML 3ML SQ SCH ×4 (05:55→18:00)
[2020-09-26] MEDS: ENOXAPARIN SODIUM 40 MG/0.4 ML SYRINGE SQ SCH (08:11)
[2020-09-26] MEDS: ASPIRIN 81MG CHEW TAB PO SCH (08:11)
[2020-09-26] MEDS: FUROSEMIDE 40 MG TABLET PO SCH ×2 (08:11→18:05)
[2020-09-26] MEDS: FAMOTIDINE 20MG VIAL IV SCH ×2 (08:12→23:28)
[2020-09-26] MEDS: METOPROLOL TARTRATE 25 MG TAB PO SCH ×2 (08:12→23:28)
[2020-09-26] MEDS: INSULIN GLARGINE 100 UNITS/ML 10 ML VIAL SQ SCH ×2 (08:12→23:33)
[2020-09-26] MEDS: ARTIFICIAL TEARS 3.5 GM OINTMENT OD SCH ×2 (08:14→23:28)
[2020-09-26] MEDS: BALSAM PERU/CASTOR OIL 60 GM TUBE TP SCH ×2 (08:15→23:28)
[2020-09-26] MEDS: CEFTRIAXONE 1G VIAL IVP SCH (12:18)
[2020-09-26] MEDS: FOSPHENYTOIN SODIUM 200 MG in 0.9%NACL 50ML 50 ML IV SCH (15:06)
[2020-09-27] VITALS (24 sets, daily range): BP systolic 110–144; BP diastolic 52–86
[2020-09-27] MEDS: INSULIN HUMULIN R 100 UNIT/ML 3ML SQ SCH ×5 (00:53→23:57)
[2020-09-27] MEDS: LEVETIRACETAM 1,500 MG in 0.9%NACL 100ML 100 ML IV SCH ×2 (03:54→16:40)
[2020-09-27 04:10] LABS: ABG BASE EXCESS 6.7 mmol/L (-2.0-3.0); ABG HCO3 30.7 mmol/L (21.0-28.0); ABG OXYGEN SATURATION 97.6 % (95.0-99.0); ABG PCO2 41 mmHg (35-48)
[2020-09-27 04:19] LABS: BASOPHILS % (AUTO) 0.4 % (0.0-5.0); EOSINOPHILS % (AUTO) 2.2 % (0.0-8.0); HEMATOCRIT 33.1 % (42-54); LYMPHOCYTES % (AUTO) 29.2 % (21.0-51.0); MEAN CORPUSCULAR HEMOGLOBIN 25.2 pg (27.0-33.0); MEAN CORPUSCULAR HGB CONC 30.8 g/dL (32.0-36.0); MEAN CORPUSCULAR VOLUME 81.7 fL (79-99); MONOCYTES % (AUTO) 8.8 % (3.0-13.0); NEUTROPHILS % (AUTO) 57.8 % (40.0-77.0); PLATELET COUNT (AUTO) 312 K/uL (130-400); RED BLOOD CELL COUNT(AUTO) 4.05 MIL/uL (4.50-6.20); RED CELL DISTRIBUTION WIDTH 24.4 % (11.0-15.5); WHITE BLOOD COUNT (AUTO) 6.9 K/uL (4.8-10.8)
[2020-09-27 04:32] LABS: CREATININE 0.7 mg/dL (0.5-1.5); POTASSIUM 3.7 mmol/L (3.5-5.1)
[2020-09-27] MEDS: FOSPHENYTOIN SODIUM 100 MG/2 ML VIAL IV SCH ×2 (06:00→20:25)
[2020-09-27] MEDS: INSULIN GLARGINE 100 UNITS/ML 10 ML VIAL SQ SCH ×2 (07:36→20:47)
[2020-09-27] MEDS: ARTIFICIAL TEARS 3.5 GM OINTMENT OD SCH ×2 (08:36→20:43)
[2020-09-27] MEDS: BALSAM PERU/CASTOR OIL 60 GM TUBE TP SCH (08:36)
[2020-09-27] MEDS: FAMOTIDINE 20MG VIAL IV SCH ×2 (08:58→20:24)
[2020-09-27] MEDS: FUROSEMIDE 40 MG TABLET PO SCH ×2 (08:58→16:40)
[2020-09-27] MEDS: METOPROLOL TARTRATE 25 MG TAB PO SCH ×2 (08:58→20:24)
[2020-09-27] MEDS: CEFTRIAXONE 1G VIAL IVP SCH (12:32)
[2020-09-27] MEDS: FOSPHENYTOIN SODIUM 200 MG in 0.9%NACL 50ML 50 ML IV SCH (14:13)
[2020-09-28] VITALS (24 sets, daily range): BP systolic 98–133; BP diastolic 62–82
[2020-09-28] MEDS: LEVETIRACETAM 1,500 MG in 0.9%NACL 100ML 100 ML IV SCH ×2 (03:54→16:17)
[2020-09-28] MEDS: INSULIN HUMULIN R 100 UNIT/ML 3ML SQ SCH ×3 (06:00→17:34)
[2020-09-28] MEDS: FOSPHENYTOIN SODIUM 100 MG/2 ML VIAL IV SCH ×2 (06:17→21:07)
[2020-09-28] MEDS: INSULIN GLARGINE 100 UNITS/ML 10 ML VIAL SQ SCH ×2 (06:35→21:08)
[2020-09-28] MEDS ORDERED: ACETAMINOPHEN 650 MG SUPPOSITORY RC PRN (08:15)
[2020-09-28] MEDS: ARTIFICIAL TEARS 3.5 GM OINTMENT OD SCH ×2 (08:21→21:06)
[2020-09-28] MEDS: BALSAM PERU/CASTOR OIL 60 GM TUBE TP SCH ×2 (08:21→21:07)
[2020-09-28] MEDS: FAMOTIDINE 20MG VIAL IV SCH ×2 (08:35→21:07)
[2020-09-28] MEDS: METOPROLOL TARTRATE 25 MG TAB PO SCH ×2 (08:35→21:06)
[2020-09-28] MEDS: FUROSEMIDE 40 MG TABLET PO SCH ×2 (08:35→16:17)
[2020-09-28] MEDS: ASPIRIN 81MG CHEW TAB PO SCH (08:35)
[2020-09-28] MEDS: ENOXAPARIN SODIUM 40 MG/0.4 ML SYRINGE SQ SCH (08:35)
[2020-09-28] MEDS: CEFTRIAXONE 1G VIAL IVP SCH (12:48)
[2020-09-28] MEDS: FOSPHENYTOIN SODIUM 200 MG in 0.9%NACL 50ML 50 ML IV SCH (14:42)
[2020-09-29] VITALS (24 sets, daily range): BP systolic 88–129; BP diastolic 61–78
[2020-09-29] MEDS ORDERED: 0.9%NACL 100ML 100 ML IV ONE (03:03)
[2020-09-29] MEDS: LEVETIRACETAM 1,500 MG in 0.9%NACL 100ML 100 ML IV SCH ×2 (03:32→16:41)
[2020-09-29] MEDS: FOSPHENYTOIN SODIUM 100 MG/2 ML VIAL IV SCH ×2 (06:29→23:01)
[2020-09-29] MEDS: INSULIN GLARGINE 100 UNITS/ML 10 ML VIAL SQ SCH ×2 (06:31→22:00)
[2020-09-29] MEDS: INSULIN HUMULIN R 100 UNIT/ML 3ML SQ SCH ×4 (06:32→17:42)
[2020-09-29] MEDS: BALSAM PERU/CASTOR OIL 60 GM TUBE TP SCH ×2 (08:21→22:55)
[2020-09-29] MEDS: ARTIFICIAL TEARS 3.5 GM OINTMENT OD SCH ×2 (08:21→22:56)
[2020-09-29] MEDS: ASPIRIN 81MG CHEW TAB PO SCH (08:27)
[2020-09-29] MEDS: ENOXAPARIN SODIUM 40 MG/0.4 ML SYRINGE SQ SCH (08:27)
[2020-09-29] MEDS: FAMOTIDINE 20MG VIAL IV SCH ×2 (08:28→23:01)
[2020-09-29] MEDS: METOPROLOL TARTRATE 25 MG TAB PO SCH ×2 (08:28→23:01)
[2020-09-29] MEDS: FUROSEMIDE 40 MG TABLET PO SCH ×2 (08:29→16:41)
[2020-09-29] MEDS: ACETAMINOPHEN 325 MG TAB PO PRN ×2 (08:39→18:34)
[2020-09-29] MEDS ORDERED: MAGNESIUM 2GM PREMIX 50ML 0 ML IV ONE (11:19)
[2020-09-29] MEDS ORDERED: MAGNESIUM 2GM PREMIX 50ML 50 ML IV ONE (11:29)
[2020-09-29] MEDS: CEFTRIAXONE 1G VIAL IVP SCH (11:39)
[2020-09-29] MEDS: FOSPHENYTOIN SODIUM 200 MG in 0.9%NACL 50ML 50 ML IV SCH (14:27)
[2020-09-29] MEDS: VALPROIC ACID (AS SODIUM SALT) 500 MG in 0.9%NACL 100ML 100 ML IV SCH (17:41)
[2020-09-30] VITALS (19 sets, daily range): BP systolic 96–135; BP diastolic 61–78
[2020-09-30] MEDS: VALPROIC ACID (AS SODIUM SALT) 500 MG in 0.9%NACL 100ML 100 ML IV SCH ×4 (01:15→20:30)
[2020-09-30] MEDS: INSULIN HUMULIN R 100 UNIT/ML 3ML SQ SCH ×4 (01:17→17:09)
[2020-09-30 04:16] LABS: HEMATOCRIT 31.1 % (42-54); MEAN CORPUSCULAR HEMOGLOBIN 25.4 pg (27.0-33.0); MEAN CORPUSCULAR HGB CONC 31.8 g/dL (32.0-36.0); MEAN CORPUSCULAR VOLUME 79.7 fL (79-99); RED BLOOD CELL COUNT(AUTO) 3.9 MIL/uL (4.50-6.20); RED CELL DISTRIBUTION WIDTH 24.1 % (11.0-15.5); WHITE BLOOD COUNT (AUTO) 9.1 K/uL (4.8-10.8)
[2020-09-30 04:29] LABS: CREATININE 0.9 mg/dL (0.5-1.5); POTASSIUM 3.5 mmol/L (3.5-5.1)
[2020-09-30] MEDS: LEVETIRACETAM 1,500 MG in 0.9%NACL 100ML 100 ML IV SCH ×2 (05:10→17:17)
[2020-09-30] MEDS: FOSPHENYTOIN SODIUM 100 MG/2 ML VIAL IV SCH ×2 (05:10→22:00)
[2020-09-30] MEDS: INSULIN GLARGINE 100 UNITS/ML 10 ML VIAL SQ SCH ×2 (08:42→21:00)
[2020-09-30] MEDS: FAMOTIDINE 20MG VIAL IV SCH ×2 (08:44→21:01)
[2020-09-30] MEDS: ASPIRIN 81MG CHEW TAB PO SCH (08:45)
[2020-09-30] MEDS: ENOXAPARIN SODIUM 40 MG/0.4 ML SYRINGE SQ SCH (08:45)
[2020-09-30] MEDS: FUROSEMIDE 40 MG TABLET PO SCH ×2 (08:46→17:05)
[2020-09-30] MEDS: METOPROLOL TARTRATE 25 MG TAB PO SCH ×2 (08:46→21:01)
[2020-09-30] MEDS: ARTIFICIAL TEARS 3.5 GM OINTMENT OD SCH ×2 (08:47→21:01)
[2020-09-30] MEDS: BALSAM PERU/CASTOR OIL 60 GM TUBE TP SCH ×2 (08:47→21:01)
[2020-09-30] MEDS: FOSPHENYTOIN SODIUM 200 MG in 0.9%NACL 50ML 50 ML IV SCH (13:36)
[2020-09-30] MEDS: CEFTRIAXONE 1G VIAL IVP SCH (13:40)
[2020-09-30] MEDS: KCL 20 MEQ ERTAB PO PRN ×2 (17:08→21:00)
[2020-10-01] VITALS (20 sets, daily range): BP systolic 109–137; BP diastolic 63–89
[2020-10-01] MEDS: VALPROIC ACID (AS SODIUM SALT) 500 MG in 0.9%NACL 100ML 100 ML IV SCH ×4 (00:41→16:49)
[2020-10-01] MEDS: INSULIN HUMULIN R 100 UNIT/ML 3ML SQ SCH ×4 (01:25→17:39)
[2020-10-01] MEDS: FOSPHENYTOIN SODIUM 100 MG/2 ML VIAL IV SCH ×2 (06:00→21:27)
[2020-10-01] MEDS: LEVETIRACETAM 1,500 MG in 0.9%NACL 100ML 100 ML IV SCH ×2 (06:04→16:57)
[2020-10-01] MEDS: METOPROLOL TARTRATE 25 MG TAB PO SCH ×2 (09:53→21:03)
[2020-10-01] MEDS: FUROSEMIDE 40 MG TABLET PO SCH ×2 (09:54→16:49)
[2020-10-01] MEDS: ASPIRIN 81MG CHEW TAB PO SCH (09:54)
[2020-10-01] MEDS: BALSAM PERU/CASTOR OIL 60 GM TUBE TP SCH ×2 (09:55→20:11)
[2020-10-01] MEDS: FAMOTIDINE 20MG VIAL IV SCH ×2 (09:55→21:03)
[2020-10-01] MEDS: ENOXAPARIN SODIUM 40 MG/0.4 ML SYRINGE SQ SCH (09:55)
[2020-10-01] MEDS: ARTIFICIAL TEARS 3.5 GM OINTMENT OD SCH ×2 (09:55→20:10)
[2020-10-01] MEDS: INSULIN GLARGINE 100 UNITS/ML 10 ML VIAL SQ SCH ×2 (09:57→21:07)
[2020-10-01] MEDS: CEFTRIAXONE 1G VIAL IVP SCH (11:52)
[2020-10-01] MEDS: FOSPHENYTOIN SODIUM 200 MG in 0.9%NACL 50ML 50 ML IV SCH (14:29)
[2020-10-01] MEDS: POTASSIUM CHLORIDE 10% ELIXIR 20 MEQ/15 ML UDCUP PO PRN (15:49)
[2020-10-01] MEDS ORDERED: COMPOUND IV MISC 1 EACH IVSOLN MISC PRN (17:00)
[2020-10-02] VITALS (24 sets, daily range): BP systolic 112–147; BP diastolic 62–87
[2020-10-02] MEDS: VALPROIC ACID (AS SODIUM SALT) 500 MG in 0.9%NACL 100ML 100 ML IV SCH ×5 (01:45→23:29)
[2020-10-02] MEDS: INSULIN HUMULIN R 100 UNIT/ML 3ML SQ SCH ×5 (01:56→23:29)
[2020-10-02 03:42] LABS: BASOPHILS % (AUTO) 0.2 % (0.0-5.0); EOSINOPHILS % (AUTO) 1.5 % (0.0-8.0); HEMATOCRIT 34.2 % (42-54); MEAN CORPUSCULAR HEMOGLOBIN 24.8 pg (27.0-33.0); MEAN CORPUSCULAR HGB CONC 30.1 g/dL (32.0-36.0); MEAN CORPUSCULAR VOLUME 82.2 fL (79-99); MONOCYTES % (AUTO) 9.7 % (3.0-13.0); NEUTROPHILS % (AUTO) 53.9 % (40.0-77.0); PLATELET COUNT (AUTO) 347 K/uL (130-400); RED BLOOD CELL COUNT(AUTO) 4.16 MIL/uL (4.50-6.20); RED CELL DISTRIBUTION WIDTH 24.3 % (11.0-15.5); WHITE BLOOD COUNT (AUTO) 8.3 K/uL (4.8-10.8)
[2020-10-02 03:54] LABS: CREATININE 0.7 mg/dL (0.5-1.5); POTASSIUM 3.6 mmol/L (3.5-5.1)
[2020-10-02] MEDS: FOSPHENYTOIN SODIUM 100 MG/2 ML VIAL IV SCH ×2 (06:09→21:17)
[2020-10-02] MEDS: LEVETIRACETAM 1,500 MG in 0.9%NACL 100ML 100 ML IV SCH ×2 (06:09→17:19)
[2020-10-02] MEDS: INSULIN GLARGINE 100 UNITS/ML 10 ML VIAL SQ SCH ×2 (07:55→21:20)
[2020-10-02] MEDS: METOPROLOL TARTRATE 25 MG TAB PO SCH ×2 (08:28→21:15)
[2020-10-02] MEDS: POTASSIUM CHLORIDE 10% ELIXIR 20 MEQ/15 ML UDCUP PO PRN (08:28)
[2020-10-02] MEDS: FAMOTIDINE 20MG VIAL IV SCH ×2 (08:28→21:14)
[2020-10-02] MEDS: FUROSEMIDE 40 MG TABLET PO SCH ×2 (08:28→17:19)
[2020-10-02] MEDS: BALSAM PERU/CASTOR OIL 60 GM TUBE TP SCH ×2 (08:29→21:16)
[2020-10-02] MEDS: ARTIFICIAL TEARS 3.5 GM OINTMENT OD SCH ×2 (08:29→21:15)
[2020-10-02] MEDS: ASPIRIN 81MG CHEW TAB PO SCH (08:29)
[2020-10-02] MEDS: ENOXAPARIN SODIUM 40 MG/0.4 ML SYRINGE SQ SCH (08:30)
[2020-10-02] MEDS: CEFTRIAXONE 1G VIAL IVP SCH (11:13)
[2020-10-02] MEDS: FOSPHENYTOIN SODIUM 200 MG in 0.9%NACL 50ML 50 ML IV SCH (15:06)
[2020-10-02] MEDS ORDERED: 0.9% NACL 250ML 250 ML IV ONE (23:27)
[2020-10-03] VITALS (19 sets, daily range): BP systolic 113–131; BP diastolic 64–87
[2020-10-03] MEDS: LEVETIRACETAM 1,500 MG in 0.9%NACL 100ML 100 ML IV SCH (03:57)
[2020-10-03] MEDS: FOSPHENYTOIN SODIUM 100 MG/2 ML VIAL IV SCH (05:25)
[2020-10-03] MEDS: INSULIN HUMULIN R 100 UNIT/ML 3ML SQ SCH ×2 (06:00→12:00)
[2020-10-03] MEDS: INSULIN GLARGINE 100 UNITS/ML 10 ML VIAL SQ SCH (06:28)
[2020-10-03] MEDS: VALPROIC ACID (AS SODIUM SALT) 500 MG in 0.9%NACL 100ML 100 ML IV SCH ×2 (07:12→12:00)
[2020-10-03] MEDS: FUROSEMIDE 40 MG TABLET PO SCH (08:05)
[2020-10-03] MEDS: METOPROLOL TARTRATE 25 MG TAB PO SCH (08:05)
[2020-10-03] MEDS: ASPIRIN 81MG CHEW TAB PO SCH (08:05)
[2020-10-03] MEDS: ENOXAPARIN SODIUM 40 MG/0.4 ML SYRINGE SQ SCH (08:06)
[2020-10-03] MEDS: ARTIFICIAL TEARS 3.5 GM OINTMENT OD SCH (08:07)
[2020-10-03] MEDS: BALSAM PERU/CASTOR OIL 60 GM TUBE TP SCH (08:07)
[2020-10-03] MEDS: CEFTRIAXONE 1G VIAL IVP SCH (12:00)
[2020-10-04 00:40] VITALS: BP 127/72
[2020-10-04 08:00] VITALS: BP 121/69
[2020-10-04] MEDS: MORPHINE 2 MG SYG IVP PRN ×6 (09:05→22:56)
[2020-10-04] MEDS: LORAZEPAM 2 MG/ML 1 ML VIAL IVP PRN ×3 (10:12→20:06)
[2020-10-04 20:00] VITALS: BP 112/60
[2020-10-05] MEDS: LORAZEPAM 2 MG/ML 1 ML VIAL IVP PRN (00:22)
[2020-10-05] MEDS: MORPHINE 2 MG SYG IVP PRN ×5 (05:45→22:03)
[2020-10-05 08:53] VITALS: BP 121/74
[2020-10-05] MEDS ORDERED: HONEY 1 APPL/ML TUBE TP SCH (15:30)
[2020-10-05 20:07] VITALS: BP 139/75
[2020-10-06] MEDS: MORPHINE 2 MG SYG IVP PRN ×5 (01:50→23:15)
[2020-10-06] MEDS: LORAZEPAM 2 MG/ML 1 ML VIAL IVP PRN ×2 (04:31→12:56)
[2020-10-06] MEDS ORDERED: MORPHINE 4 MG SYG ONE (08:53)
[2020-10-06 12:00] VITALS: BP 121/56
[2020-10-06 20:20] VITALS: BP 134/73
[2020-10-07] MEDS: MORPHINE 2 MG SYG IVP PRN ×2 (03:04→06:08)
== END 2020-10-07 07:20 | disposition expired | DRG 207 ==
LOC: EDH 10:36 → EDHIP 14:20 → 2BH 16:56 → 2DH 09-05 19:47 → 3BH 10-03 22:11
PROVIDERS: ADMIT Internal Medicine; ATTEND Internal Medicine
PROC: 5A1955Z Respiratory Ventilation, Greater than 96 Consecutive Hours (ICD-10-PCS; principal; 2020-08-27)
PROC: 0BH17EZ Insertion of Endotracheal Airway into Trachea, Via Natural or Artificial Opening (ICD-10-PCS; 2020-08-27)
PROC: 0BH17EZ Insertion of Endotracheal Airway into Trachea, Via Natural or Artificial Opening (ICD-10-PCS; 2020-08-30)
PROC: 0BH17EZ Insertion of Endotracheal Airway into Trachea, Via Natural or Artificial Opening (ICD-10-PCS; 2020-08-30)
PROC: 0BH17EZ Insertion of Endotracheal Airway into Trachea, Via Natural or Artificial Opening (ICD-10-PCS; 2020-09-02)
PROC: 5A1955Z Respiratory Ventilation, Greater than 96 Consecutive Hours (ICD-10-PCS; 2020-09-03)
PROC: 5A1955Z Respiratory Ventilation, Greater than 96 Consecutive Hours (ICD-10-PCS; 2020-09-03)
PROC: 02H633Z Insertion of Infusion Device into Right Atrium, Percutaneous Approach (ICD-10-PCS; 2020-09-07)
PROC: 0BH17EZ Insertion of Endotracheal Airway into Trachea, Via Natural or Artificial Opening (ICD-10-PCS; 2020-09-17)
PROC: 0BH17EZ Insertion of Endotracheal Airway into Trachea, Via Natural or Artificial Opening (ICD-10-PCS; 2020-09-21)
PROC: 5A1945Z Respiratory Ventilation, 24-96 Consecutive Hours (ICD-10-PCS; 2020-09-21)
PROC: 5A09357 Assistance with Respiratory Ventilation, Less than 24 Consecutive Hours, Continuous Positive Airway Pressure (ICD-10-PCS; 2020-09-23)
PROC: 5A1945Z Respiratory Ventilation, 24-96 Consecutive Hours (ICD-10-PCS; 2020-09-23)
PROC: 5A1955Z Respiratory Ventilation, Greater than 96 Consecutive Hours (ICD-10-PCS; 2020-09-23)
PROC: 5A09357 Assistance with Respiratory Ventilation, Less than 24 Consecutive Hours, Continuous Positive Airway Pressure (ICD-10-PCS; 2020-09-24)
PROC: 0BH17EZ Insertion of Endotracheal Airway into Trachea, Via Natural or Artificial Opening (ICD-10-PCS; 2020-09-24)
PROC: 5A1935Z Respiratory Ventilation, Less than 24 Consecutive Hours (ICD-10-PCS; 2020-10-03)
DX: J96.01 Acute respiratory failure with hypoxia (principal); J69.0 Pneumonitis due to inhalation of food and vomit; E43 Unspecified severe protein-calorie malnutrition; I50.33 Acute on chronic diastolic (congestive) heart failure; M62.82 Rhabdomyolysis; N17.9 Acute kidney failure, unspecified; G93.1 Anoxic brain damage, not elsewhere classified; N39.0 Urinary tract infection, site not specified; E87.4 Mixed disorder of acid-base balance; I13.0 Hypertensive heart and chronic kidney disease with heart failure and stage 1 through stage 4 chronic kidney disease, or unspecified chronic kidney disease; I42.9 Cardiomyopathy, unspecified; Z99.11 Dependence on respirator [ventilator] status; E11.22 Type 2 diabetes mellitus with diabetic chronic kidney disease; E66.01 Morbid (severe) obesity due to excess calories; E11.649 Type 2 diabetes mellitus with hypoglycemia without coma; L89.152 Pressure ulcer of sacral region, stage 2; B96.4 Proteus (mirabilis) (morganii) as the cause of diseases classified elsewhere; D64.9 Anemia, unspecified; E78.5 Hyperlipidemia, unspecified; E87.6 Hypokalemia; G83.9 Paralytic syndrome, unspecified; N18.9 Chronic kidney disease, unspecified; R13.12 Dysphagia, oropharyngeal phase; Z20.822 Contact with and (suspected) exposure to COVID-19; R56.9 Unspecified convulsions; Z51.5 Encounter for palliative care; Z66 Do not resuscitate; Z68.36 Body mass index [BMI] 36.0-36.9, adult; Z79.4 Long term (current) use of insulin; Z87.01 Personal history of pneumonia (recurrent); Z87.440 Personal history of urinary (tract) infections
CPT/HCPCS: 31500; 36415; 36600; 70450; 71045; 74018; 76770; 80048; 80053; 80164; 80185; 80305; 81001; 82040; 82140; 82435; 82533; 82550; 82728; 82803; 82947; 82948; 83036; 83605; 83615; 83735; 83874; 83880; 84100; 84132; 84145; 84295; 84443; 84484; 85018; 85025; 85027; 85378; 85610; 85730; 86140; 86900; 86901; 87040; 87071; 87077; 87088; 87186; 87205; 87426; 93005; 93306; 93356; 93970; 94002; 94003; 99291; C1751; C1894; G0378; J0456; J0696; J1650; J1815; J1940; J1953; J1956; J2060; J2250; J2270; J2543; J2704; J2920; J2930; J2997; J3475; J3480; J3490; J7030; J7050; J7120; Q2009; U0003